=== PATIENT | female | born 1980 | race Two or more races ===

== ENCOUNTER 2016-08-23 13:50 | Inpatient (IN) | payer MEDICAID ==
[2016-08-23] MEDS: NORMAL SALINE 1000 ML 1,000 ML IV PRN ×2 (14:12→18:16)
--- NOTE | 2016-08-23 14:35 | ER Document Report ---
ED Psych Disorder / Suicide - General Chief Complaint: Altered Mental Status Stated Complaint: ALTERED MENTAL STATUS Notes: The patient is a 35-year-old female who presents by EMS after she was found to be violent, agitated, uncooperative and altered. She tried to choke a police officer booking. She is confused and does not know where she is. She continues to ask the same question, "Where am I?". She nods her head when she is asked if she took anything. Was given 2 mg IM Versed by EMS. She is unable to provide any additional history. TRAVEL OUTSIDE OF THE [place] IN LAST 30 DAYS: No - Related Data Allergies/Adverse Reactions: BC pill Allergy (Uncoded 12/14/15 12:49) Home Medications: Current Home Medications No Home Medications 08/23/16 [History] Past Medical History - General Information source: Emergency Med Personnel - Social History Smoking Status: Unknown if Ever Smoked Family History: Reviewed & Not Pertinent Past Surgical History: Reports: Hx Cholecystectomy - Immunizations Hx Diphtheria, Pertussis, Tetanus Vaccination: Yes Review of Systems - Review of Systems -: Yes ROS unobtainable due to patient's medical condition Physical Exam - Vital signs Vitals: Temp Pulse Resp BP Pulse Ox 98.9 F 130 H 24 H 128/68 H 100 08/23/16 14:00 08/23/16 14:00 08/23/16 14:00 08/23/16 14:00 08/23/16 14:00 BP 131/90, HR 151, RR 24, Temp 99.5 oral, Pulse Ox 99% on RA - Notes Notes: PHYSICAL EXAMINATION: GENERAL: Well-appearing, well-nourished and in no acute distress. HEAD: Atraumatic, normocephalic. EYES: Pupils equal round and reactive to light, extraocular movements intact, sclera anicteric, conjunctiva are normal. No nystagmus. ENT: nares patent, oropharynx clear without exudates. Moist mucous membranes. NECK: Normal range of motion, supple without lymphadenopathy LUNGS: Breath sounds clear to auscultation bilaterally and equal. No wheezes rales or rhonchi. HEART: Tachycardia, regular rhythm ABDOMEN: Soft, nontender, normoactive bowel sounds. No guarding, no rebound. No masses appreciated. EXTREMITIES: Normal range of motion, no pitting or edema. No cyanosis. NEUROLOGICAL: Cranial nerves grossly intact. Moving all 4 extremities. PSYCH: Confused. Uncooperative. SKIN: Warm, Dry, normal turgor, no rashes or lesions noted. - Genitourinary External exam: Normal Speculum exam: Vaginal discharge Course - Re-evaluation Re-evalutation: Patient is exhibiting signs of anticholinergic toxidrome with her confusion, persistent tachycardia and dry skin. Tox workup negative, other than positive for benzos, which she received by EMS. Spoke to poison control and they do not recommend physostigmine unless patient was observed to have a direct ingestion of antihistamines. Recommends continuing benzos. 08/23/16 19:40 Patient continues to be altered with tachycardia. She is awake, alert but oriented 0. is in room and says that she does not use illicit drugs and that she has no history of mental illness. She has not had any recent illness or sickness. She took 500 mg Tylenol last night and some children's cough medicine. Considered meningitis or encephalitis, but patient does not have fever or neck stiffness. No recent travel, according to . CBC shows a leukocytosis, but the blood was drawn immediately after she was agitated and wrestling the police and EMS crew. No signs of infection at this time. No retained tampons to suggest TSS. Will continue to provide IV fluids and benzos and observe. 08/23/16 20:[address] Hopkins and he has accepted patient as inpatient. Recommends filling out and IVC so he can continue treatment. I filled out the IVC. Patient does not require hard restraints at this time because she is less agitated. Will switch her to soft restraints for protection against her pulling out her IV. Spoke to and he is in agreement with plan. - Vital Signs Vital signs: Temp Pulse Resp BP Pulse Ox 98.9 F 130 H 20 116/75 100 08/23/16 14:00 08/23/16 14:00 08/23/16 20:15 08/23/16 20:01 08/23/16 20:15 - Laboratory Result Diagrams: 08/23/16 14:00 08/23/16 15:45 Laboratory results interpreted by me: 08/23/16 08/23/16 08/23/16 13:58 14:00 15:45 WBC 19.3 H Hgb 10.8 L Hct 32.9 L Seg Neutrophils % 89.4 H Lymphocytes % 6.1 L Absolute Neutrophils 17.3 H Potassium 3.5 L Glucose 149 H POC Glucose 159 H AST 40 H Creatine Kinase 289 H Total Protein 8.5 H Urine Protein Urine Ketones Urine Blood Urine Urobilinogen Urine Ascorbic Acid Salicylates Acetaminophen < 10 L 08/23/16 08/23/16 16:12 19:00 WBC Hgb Hct Seg Neutrophils % Lymphocytes % Absolute Neutrophils Potassium Glucose POC Glucose AST Creatine Kinase Total Protein Urine Protein 100 H Urine Ketones 80 H Urine Blood SMALL H Urine Urobilinogen 4.0 H Urine Ascorbic Acid 40 H Salicylates < 1.0 L Acetaminophen - Diagnostic Test Radiology reviewed: Image reviewed, Reports reviewed - EKG Interpretation by Me EKG shows normal: Sinus rhythm, [place], Intervals, QRS Complexes, ST-T Waves Rate: Tachycardia Discharge - Discharge Clinical Impression: Tachycardia Overdose Qualifiers: Encounter type: initial encounter Injury intent: undetermined intent Qualified Code(s): T50.904A - Poisoning by unspecified drugs, medicaments and biological substances, undetermined, initial encounter Anticholinergic syndrome Qualifiers: Encounter type: initial encounter Injury intent: undetermined intent Qualified Code(s): T44.3X4A - Poisoning by other parasympatholytics [anticholinergics and antimuscarinics] and spasmolytics, undetermined, initial encounter Condition: Serious Disposition: ADMITTED INPATIENT Admitting Provider: [facility] Unit Admitted: ICU Additional Instructions: OVERDOSE / INGESTION: You have taken more medication than you should have. After your evaluation and care, it is felt that your overdose is not likely to be harmful or of any significant consequences to you and you are being discharged. In the future, you should be careful not to take more medications than what is prescribed for you. Although your overdose does not seem to be of any danger to you at this time, if you develop any unusual or unexpected symptoms after your discharge, you should return to the Emergency Department immediately for re-evaluation. INSTRUCTIONS FOR HOME CARE FOLLOWING DRUG OVERDOSAGE: The doctor feels it's safe for you to go home. You will need to be observed. If charcoal and a laxative was given to you, expect some loose black stools soon. Take no medications unless approved by a physician, including alcohol. If drowsy, lie on your stomach or side for sleeping to avoid aspiration if vomiting occurs. Take only liquids by mouth until there is no more nausea. FOR THE OBSERVER: Observe the patient for the next 24 hours and call or go to the hospital if any of the following are noted: prolonged or repeated vomiting, difficulty in arousing, convulsions (seizures or fits), fever, persistent cough, breathing that is too slow or too rapid, or confused or bizarre behavior. If a counselling visit has been arranged, make sure the patient attends. Call the physician or poison control if you have questions. FOLLOW-UP CARE: If you have been referred to a physician for follow-up care, call the physician s office for an appointment as you were instructed or within the next two days. If you experience worsening or a significant change in your symptoms, notify the physician immediately or return to the Emergency Department at any time for re-evaluation.
[2016-08-23 14:42] LABS: ABSOLUTE BASOPHILS # (AUTO) 0.1 10^3/uL (0.0-0.2); ABSOLUTE LYMPHOCYTES (AUTO) 1.2 10^3/uL (0.5-4.7); ABSOLUTE MONOCYTES (AUTO) 0.8 10^3/uL (0.1-1.4); ABSOLUTE NEUT (AUTO) 17.3 10^3/uL (1.7-8.2); BASOPHILS % (AUTO) 0.3 % (0-2); HEMATOCRIT 32.9 % (36.0-47.0); HEMOGLOBIN 10.8 g/dL (12.0-15.5); HGB HCT DIFFERENCE -0.5; LYMPHOCYTES % (AUTO) 6.1 % (13-45); MEAN CORPUSCULAR HEMOGLOBIN 28.2 pg (27.0-33.4); MEAN CORPUSCULAR HGB CONC 32.9 g/dL (32.0-36.0); MEAN CORPUSCULAR VOLUME 86 fl (80-97); MONOCYTES % (AUTO) 4.2 % (3-13); RED BLOOD COUNT 3.84 10^6/uL (3.72-5.28); RED CELL DISTRIBUTION WIDTH 13.8 % (11.5-14.0); SEGMENTED NEUTROPHILS % (AUTO) 89.4 % (42-78); WHITE BLOOD COUNT 19.3 10^3/uL (4.0-10.5)
[2016-08-23] MEDS ORDERED: MIDAZOLAM 2 MG/2 ML INJ IV ONE (16:00)
[2016-08-23 16:14] LABS: ALANINE AMINOTRANSFERASE 20 U/L (9-52); ALBUMIN 3.7 g/dL (3.5-5.0); ALCOHOL < 10 mg/dL (NONE DETECTED); ALKALINE PHOSPHATASE 110 U/L (38-126); ANION GAP 17 (5-19); ASPARTATE AMINO TRANSFERASE 40 U/L (14-36); BILIRUBIN,TOTAL 0.6 mg/dL (0.2-1.3); BLOOD UREA NITROGEN 11 mg/dL (7-20); CALCIUM 9.3 mg/dL (8.4-10.2); CARBON DIOXIDE 24 mmol/L (22-30); CHLORIDE 104 mmol/L (98-107); CREATINE KINASE 289 U/L (30-135); CREATININE RESULT 0.96 mg/dL (0.52-1.25); GLUCOSE 149 mg/dL (75-110); LIPASE 145.5 U/L (23-300); POTASSIUM 3.5 mmol/L (3.6-5.0); SODIUM 144.5 mmol/L (137-145); TOTAL PROTEIN 8.5 g/dL (6.3-8.2)
[2016-08-23 16:30] LABS: APPEARANCE,URINE CLOUDY; BILIRUBIN,URINE NEGATIVE (NEGATIVE); GLUCOSE, URINE NEGATIVE (NEGATIVE); KETONES,URINE 80 mg/dL (NEGATIVE); LEUKOCYTE ESTERASE,URINE NEGATIVE (NEGATIVE); NITRITE,URINE NEGATIVE (NEGATIVE); PROTEIN,URINE 100 mg/dL (NEGATIVE); URINE SPECIFIC GRAVITY 1.028
[2016-08-23 16:42] LABS: URINE BARBITURATES SCREEN NEGATIVE; URINE METHADONE SCREEN NEGATIVE; URINE OPIATES LOW NEGATIVE; URINE PHENCYCLIDINE SCREEN NEGATIVE
[2016-08-23] MEDS ORDERED: LORAZEPAM INJ 2 MG/1 ML VIAL IV ONE ×2 (17:44→20:25)
[2016-08-23] MEDS ORDERED: NORMAL SALINE 1000 ML 1,000 ML IV PRN (17:49)
[2016-08-23] MEDS ORDERED: LORAZEPAM INJ 2 MG/1 ML VIAL IV PRN (20:41)
[2016-08-23] MEDS ORDERED: HALOPERIDOL LACTATE INJ 5 MG/1 ML VIAL IV ONE (21:08)
[2016-08-23 21:33] LABS: ANION GAP 13 (5-19); BLOOD UREA NITROGEN 9 mg/dL (7-20); CALCIUM 7.6 mg/dL (8.4-10.2); CARBON DIOXIDE 19 mmol/L (22-30); CHLORIDE 115 mmol/L (98-107); CREATININE RESULT 0.73 mg/dL (0.52-1.25); GLUCOSE 115 mg/dL (75-110); POTASSIUM 3.8 mmol/L (3.6-5.0); SODIUM 146.5 mmol/L (137-145)
[2016-08-23] MEDS ORDERED: THIAMINE HCL 100 MG, FOLIC ACID 1 MG in NORMAL SALINE 50 ML IV ONE (22:00)
[2016-08-23] MEDS: HEPARIN SOD (PORCINE) 5,000 UNIT/ML 1 ML SYRINGE SUBCUT SCH (23:07)
--- NOTE | 2016-08-23 23:51 | EKG REPORT ---
SEVERITY:- ABNORMAL ECG - SINUS TACHYCARDIA NONSPECIFIC T ABNORMALITIES, INFERIOR LEADS : Confirmed by: Amrit Clarke 23-Aug-2016 23:51:01
[2016-08-24 01:06] LABS: CHLAM PCR NOT DETECTED (NOT DETECT)
[2016-08-24] MEDS ORDERED: INFLUENZA ADLT QUAD (36MOS+) 2016-17 VAC 0.5 ML SYR IM PRN (01:16)
--- NOTE | 2016-08-24 04:54 | PDOC H&P ---
History of Present Illness Admission Date/PCP: 08/23/16 21:08 Patient complains of: Altered mental status History of Present Illness: VERONICA BOLAÑOS is a 35 year old female who is Swazi-speaking only and history obtained by the medical record and patient's speaking Monegasque at bedside with a past medical history of menorrhagia and paranoid delusions, patient is paranoid restless and intermittently combative placed in restraints after 3 days of acute delirium with hallucinations stating she had been followed by dark shadows. She had also complained of menorrhagia with follow- up to the health department and was referred to the [facility], where she was delusional and directing traffic [place] Police Department was called and was unable to calm the patient becoming combative she was eventually subdued and brought to the emergency room in restraints. Patient's admits to a similar episode of severe paranoia approximately one year ago, but does not have a formal mental health diagnosis given lack of financial resources. In the emergency room she has an unremarkable workup and was initially thought to have an overdose prior to revealing her history. She has received 4 mg of Versed, 4 mg of Ativan, 5 mg of Haldol and remains restless but calm. She does not take any medications, she denies fever but admits pelvic pain. In the emergency room she is found to have leukocytosis but otherwise a nonspecific workup and referred to the hospitalist for admission. Past Medical History Psychiatric Medical History: Reports: Depression, Schizoaffective Disorder Past Surgical History Past Surgical History: Reports: Cholecystectomy Social History Information Source: Relative, [facility] Records Lives with: Family Smoking Status: Never Smoker Frequency of Alcohol Use: None Hx Recreational Drug Use: No Drugs: None Hx Prescription Drug Abuse: No - Advance Directive Resuscitation Status: Full Code Family History Family History: None, Other - No psychiatric illness Parental Family History Reviewed: Yes Children Family History Reviewed: Yes Sibling(s) Family History Reviewed.: Yes Medication/Allergy Home Medications: No Home Medications 08/23/16 Allergies/Adverse Reactions: BC pill Allergy (Uncoded 12/14/15 12:49) Review of Systems ROS unobtainable: Due to mental status Physical Exam Vital Signs: Temp Pulse Resp BP Pulse Ox 99.2 F 114 H 16 107/64 99 08/24/16 00:30 08/24/16 02:00 08/24/16 00:30 08/24/16 00:30 08/24/16 00:30 Intake & Output 08/22/16 08/23/16 08/24/16 11:59 11:59 11:59 Weight 83.2 kg General appearance: PRESENT: disheveled, mild distress. ABSENT: cooperative Head exam: PRESENT: atraumatic, normocephalic Eye exam: PRESENT: conjunctiva pink, EOMI, PERRLA. ABSENT: scleral icterus Ear exam: PRESENT: normal external ear exam Mouth exam: PRESENT: moist, tongue midline Neck exam: PRESENT: full ROM. ABSENT: carotid bruit, JVD, lymphadenopathy, thyromegaly Respiratory exam: PRESENT: clear to auscultation aron. ABSENT: rales, rhonchi, wheezes Cardiovascular exam: PRESENT: RRR. ABSENT: diastolic murmur, rubs, systolic murmur Pulses: PRESENT: normal dorsalis pedis pul Vascular exam: PRESENT: normal capillary refill GI/Abdominal exam: PRESENT: normal bowel sounds, soft. ABSENT: distended, guarding, mass, organolmegaly, rebound, tenderness Gentrourinary exam: PRESENT: other - Pelvic pain to palpation bilaterally Extremities exam: PRESENT: full ROM. ABSENT: calf tenderness, clubbing, pedal edema Psychiatric exam: PRESENT: agitated, anxious, manic, unusual affect. ABSENT: suicidal ideation Focused psych exam: PRESENT: delusional, internal stimuli, paranoid, psychomotor agitation, restlessness Skin exam: PRESENT: dry, intact, warm. ABSENT: cyanosis, rash Results Impressions: Abdomen/Pelvis CT 08/23/16 00:00 IMPRESSION: Markedly distended urinary bladder. Mild bilateral hydroureteronephrosis, questionable for vesicoureteral reflux. Enlarged bilateral ovaries with multiple cystic lesions. Tubular shaped fluid- filled areas at bilateral adnexa, may represent hydrosalpinges. Pelvic ultrasound can help in better characterization. Cholelithiasis. Colonic diverticulosis. Chest X-Ray 08/23/16 14:00 IMPRESSION: NO ACUTE RADIOGRAPHIC FINDING IN THE CHEST. Abdomen X-Ray 08/23/16 21:12 IMPRESSION: POSSIBLE MASS IN THE LOWER ABDOMEN AND PELVIS WITH DISPLACEMENT OF THE BOWEL LOOPS. THIS COULD REPRESENT A DISTENDED URINARY BLADDER, ENLARGED UTERUS, OR OTHER SOFT TISSUE MASS. Assessment & Plan - Diagnosis (1) Encephalopathy acute Is this a current diagnosis for this admission?: YesPlan: Likely secondary to psychotic break with unclear trigger, she received supportive care benzodiazepine and antipsychotic with mental health consult (2) Leukocytosis Is this a current diagnosis for this admission?: YesPlan: Likely secondary to acute psychotic break without fever I will repeat a CBC and obtain urinalysis (3) Pelvic pain Is this a current diagnosis for this admission?: YesPlan: Obtain CT consider PEDIATRIC CARE COORDINATOR consult (4) Hallucinogen psychosis, with delusions Is this a current diagnosis for this admission?: YesPlan: Please see #1 - Time Time Spent: 30 to 50 Minutes
[2016-08-24 05:22] LABS: ABSOLUTE LYMPHOCYTES (AUTO) 1.7 10^3/uL (0.5-4.7); ABSOLUTE MONOCYTES (AUTO) 0.8 10^3/uL (0.1-1.4); ABSOLUTE NEUT (AUTO) 9.4 10^3/uL (1.7-8.2); BASOPHILS % (AUTO) 0.1 % (0-2); HEMATOCRIT 30.4 % (36.0-47.0); HEMOGLOBIN 9.8 g/dL (12.0-15.5); MEAN CORPUSCULAR HEMOGLOBIN 27.7 pg (27.0-33.4); MEAN CORPUSCULAR HGB CONC 32.4 g/dL (32.0-36.0); MEAN CORPUSCULAR VOLUME 86 fl (80-97); MONOCYTES % (AUTO) 7.1 % (3-13); RED BLOOD COUNT 3.55 10^6/uL (3.72-5.28); SEGMENTED NEUTROPHILS % (AUTO) 78.8 % (42-78); WHITE BLOOD COUNT 11.9 10^3/uL (4.0-10.5)
[2016-08-24 05:50] LABS: ANION GAP 11 (5-19); BLOOD UREA NITROGEN 8 mg/dL (7-20); CALCIUM 7.6 mg/dL (8.4-10.2); CARBON DIOXIDE 22 mmol/L (22-30); CHLORIDE 111 mmol/L (98-107); CREATININE RESULT 0.63 mg/dL (0.52-1.25); GLUCOSE 91 mg/dL (75-110); SODIUM 144.2 mmol/L (137-145)
[2016-08-24] MEDS: HEPARIN SOD (PORCINE) 5,000 UNIT/ML 1 ML SYRINGE SUBCUT SCH ×3 (06:52→22:31)
[2016-08-24] MEDS ORDERED: CALCIUM GLUCONATE 1,000 MG in DEXTROSE 5%-WATER 50 ML IV ONE (08:00)
[2016-08-24] MEDS ORDERED: HALOPERIDOL 5 MG TABLET PO SCH (10:00)
[2016-08-24] MEDS: DOCUSATE SODIUM 100 MG CAPSULE PO SCH ×2 (10:15→17:45)
--- NOTE | 2016-08-24 10:28 | PDOC PROGRESS REPORT ---
Subjective Progress Note for:: 08/24/16 Subjective:: Patient could not remember the episode. She did have pelvic pain today but better than yesterday. Patient had voided freely. During the weekend patient has been having trouble urinating with fever. There is no nausea or vomiting, nor diarrhea. Reportedly with heavy menstrual periods. Patient [facility] where she stated that she had a pelvic exam and a Pap smear. Currently involuntarily committed but is off restraints now. Patient is more calm and cooperative. Physical Exam Vital Signs: Temp Pulse Resp BP Pulse Ox 99.2 F 119 H 12 107/79 98 08/24/16 07:24 08/24/16 07:24 08/24/16 07:24 08/24/16 07:24 08/24/16 07:24 Intake & Output 08/23/16 08/24/16 08/25/16 06:59 06:59 06:59 Intake Total 10 Output Total 300 Balance -290 Weight 83.2 kg General appearance: PRESENT: no acute distress, cooperative, obese Head exam: PRESENT: normocephalic Eye exam: PRESENT: EOMI Mouth exam: PRESENT: moist, neck supple Neck exam: ABSENT: JVD Respiratory exam: PRESENT: clear to auscultation aron. ABSENT: rhonchi, wheezes Cardiovascular exam: PRESENT: RRR. ABSENT: gallop GI/Abdominal exam: PRESENT: soft, tenderness - On the hypogastric area. ABSENT : distended Extremities exam: ABSENT: pedal edema Skin exam: PRESENT: dry, warm. ABSENT: cyanosis Results Laboratory Results: 08/24/16 03:58 08/24/16 03:58 08/24/16 08/24/16 03:58 03:58 WBC 11.9 H RBC 3.55 L Hgb 9.8 L Hct 30.4 L MCV 86 MCH 27.7 MCHC 32.4 RDW 14.0 Plt Count 221 Seg Neutrophils % 78.8 H Lymphocytes % 14.0 Monocytes % 7.1 Eosinophils % 0.0 Basophils % 0.1 Absolute Neutrophils 9.4 H Absolute Lymphocytes 1.7 Absolute Monocytes 0.8 Absolute Eosinophils 0.0 Absolute Basophils 0.0 Sodium 144.2 Potassium 4.0 Chloride 111 H Carbon Dioxide 22 Anion Gap 11 BUN 8 Creatinine 0.63 Est GFR ( Amer) > 60 Est GFR (Non-Af Amer) > 60 Glucose 91 Calcium 7.6 L Impressions: Abdomen/Pelvis CT 08/23/16 00:00 IMPRESSION: Markedly distended urinary bladder. Mild bilateral hydroureteronephrosis, questionable for vesicoureteral reflux. Enlarged bilateral ovaries with multiple cystic lesions. Tubular shaped fluid- filled areas at bilateral adnexa, may represent hydrosalpinges. Pelvic ultrasound can help in better characterization. Cholelithiasis. Colonic diverticulosis. Chest X-Ray 08/23/16 14:00 IMPRESSION: NO ACUTE RADIOGRAPHIC FINDING IN THE CHEST. Abdomen X-Ray 08/23/16 21:12 IMPRESSION: POSSIBLE MASS IN THE LOWER ABDOMEN AND PELVIS WITH DISPLACEMENT OF THE BOWEL LOOPS. THIS COULD REPRESENT A DISTENDED URINARY BLADDER, ENLARGED UTERUS, OR OTHER SOFT TISSUE MASS. Transvaginal US 08/24/16 00:00 IMPRESSION: Massively distended urinary bladder. Prior CT 08/23/2016 demonstrates bilateral hydronephrosis and hydroureter likely from urinary outflow obstruction at the level of the urinary bladder outlet Fibroid uterus Bilateral complex adnexal structures likely representing a combination of hydrosalpinx along with either multiple ovarian cysts, pedunculated fibroids, or low-grade ovarian tumors. Assessment & Plan - Diagnosis (1) Encephalopathy acute Is this a current diagnosis for this admission?: Yes (2) Leukocytosis Qualifiers: Leukocytosis type: unspecified Qualified Code(s): D72.829 - Elevated white blood cell count, unspecified Is this a current diagnosis for this admission?: Yes (3) Bladder outlet obstruction Is this a current diagnosis for this admission?: Yes (4) Adnexal mass Is this a current diagnosis for this admission?: Yes (5) Uterine fibroid Qualifiers: Uterine leiomyoma location: unspecified location Qualified Code(s): D25.9 - Leiomyoma of uterus, unspecified Is this a current diagnosis for this admission?: Yes (6) Cholelithiasis Qualifiers: Cholecystitis presence: without cholecystitis Biliary obstruction: with biliary obstruction Is this a current diagnosis for this admission?: Yes (7) Depression Qualifiers: Depression Type: unspecified Qualified Code(s): F32.9 - Major depressive disorder, single episode, unspecified Is this a current diagnosis for this admission?: Yes - Time Time Spent with patient: 25-34 minutes - Plan Summary Plan Summary: Case discussed with psychiatry service. Discontinue Ativan and Haldol. We will begin Zyprexa and Cogentin. In the meantime we'll monitor creatinine, insert gramajo catheter. We will consult urology for further evaluation. Awaiting gynecological evaluation. Continue supportive care. We will check a urine and culture. We will begin antibiotics for possible infection causing bladder outlet obstruction.
[2016-08-24] MEDS ORDERED: CALCIUM GLUCONATE 1000 MG/10 ML INJ IV ONE (10:30)
--- NOTE | 2016-08-24 10:31 | PSYCHOLOGICAL NOTE ---
Psych Note - Psych Note Psych Note: Patient presented to [facility] with altered state and concerns with possible overdose. Clinician notes the patient is Palauan speaking but was able to communicate with clinician because she understands more Algerian then speaks and Clinician can understand more Palauan then she can speak. Patient's was also able to translate when present; clinician notes was translating appropriately and not changing context. Patient states that she has only taken Tylenol and children's cough medication, she denies taking any other medication in any form. The patient states that she has times of a lot of energy and then being down. Clinician notes that while this may indicate a mood issue; it can also be a translational issue. Patient's , Saqib, states that she has only had one other time were there was an issue of paranoia back in December of last year. He stated that she was thinking that director long term care were coming to get her and "things like that." he stated that it started before their vacation back home to [place] and continued while there. When asked how long it lasted he stated "months" but was unable to give a clearer idea of time. Saqib states the patient has been fine until a few days ago when she started acting "weird." When asked to explain was "weird" meant he stated the patient "keep thinking that she had to forgive people." Patient is alert and orientated to person, place, time and circumstance. Mood is euthymic with congruent affect. Patient denies suicidal and homicidal ideation. Patient denies auditory and visual hallucinations; no current delusions are noted while in room with patient. Clinician notes the patient is in soft restraints and has only just started to become less agitated. Thought process is logical, organized and linear. Conversational speech was low. Eye Contact was well maintained. Intellectual abilities appear to be within average range. Attention and concentration are good. Insight, judgment, and impulse control appear to be fair. 296.80 (F 31.9) Unspecified Bipolar and Related Disorder Impression/ plan: Patient is recommended to continue on IVC. Patient denies taking any medications other than Tylenol and children's cough medication. Patient discloses some ups and downs in her mood and energy. At this time is unclear if the patient had a manic episode that resulted in psychosis, if the patient had an allergic reaction to the children's cough medication, or if the patient is taking some other undisclosed substance. Patient is just starting to present as if she is out of psychosis and a re-evaluation will need to be conducted tomorrow, after patient is more stable and some of the possibilities are explored to ensure the patient's safety. Addendum: After further chart review and consultation with attending hospitalist ; requested rescind of IVC consulted with Dr. Charles on agreement with rescind of IVC as the patient is no no longer meets criteria per [place] GS 122 C
--- NOTE | 2016-08-24 11:51 | CONSULTATION REPORT E ---
Consultation Report NAME: VERONICA BOLAÑOS : 1980 AGE: 35Y DATE: 08/24/2016 307 A TO: AFIA NORWOOD M.D. FROM: OBINNA LIZAMA M.D. Requesting Physician HISTORY OF PRESENT ILLNESS: The patient is a 35-year-old female, 2 para 2, with 2 vaginal deliveries. Her children are 11 and 12, respectively. Her last menstrual period was 2 weeks ago, which she described as heavy. SILK SCREEN OPERATOR was consulted with abnormal changes on CT and ultrasound in the pelvis. She presented to the hospital with acute onset of hallucinations and delirium yesterday. She reports being seen at the health department yesterday morning and having a Pap smear and then having an altercation with the [place] police yesterday. She denies memory of the altercation at this time. PAST MEDICAL HISTORY: Significant for an appendectomy in 2008. PAST SURGICAL HISTORY: 1. Cholecystectomy. 2. Appendectomy. SOCIAL HISTORY: She is for 15 years. ALLERGIES: CONTROL PILL. REVIEW OF SYSTEMS: The patient denies any heart or lung problems. PHYSICAL EXAMINATION: GENERAL: She is alert. VITAL SIGNS: Stable. GENERAL: She appears alert and oriented in bed. She does speak Gibraltarian but her says at this point she is 80% normal. HEENT: Unremarkable. ABDOMEN: Soft. GENITOURINARY: Externally is normal. Her cervix looks normal. I did do cultures. She is tender in the pelvis. She did void prior to the exam and a York was then placed, and she had greater than 200 mL of postvoid residual. LABORATORY DATA: Of note, I would like to say that she had a left-sided ovarian cyst on a CT scan back in 2008 when she had her appendectomy. I do not have records of that visit. She also in January of last year presented to the ER and had a left ovarian cyst as well. The remainder of her ultrasound was normal. She denies any followup after that. And then we have the unusual CAT scans and ultrasounds today, with what appears to be a persistent complex left ovarian cyst. There are also some complex changes on the right adnexa. ASSESSMENT: 1. Mental status changes. 2. Pelvic mass. 3. Over-distended bladder. PLAN: I cannot link these 3 problems with any obvious findings. I would recommend a neurological evaluation. Perhaps we could repeat either the CAT scan or the sonogram now that her bladder is drained with a York catheter in place. Also, we should obtain her Pap smear from the health department. DICTATING PHYSICIAN: AFIA NORWOOD M.D. [id number] PHY#: [id number] ID: [id number] JOB#: [id number] ACCT: [id number] cc:AFIA NORWOOD M.D. >
[2016-08-24] MEDS: OLANZAPINE 5 MG TABLET PO SCH ×2 (12:27→22:47)
[2016-08-24] MEDS: CEFTRIAXONE 1 GM/D5W RTU 1 GM/50 ML RTUPB IV SCH (14:28)
[2016-08-24] MEDS: ACETAMINOPHEN 325 MG TABLET PO PRN ×3 (14:29→22:31)
[2016-08-24] MEDS: BENZTROPINE MESYLATE 1 MG TABLET PO SCH (22:31)
[2016-08-25] MEDS: ACETAMINOPHEN 325 MG TABLET PO PRN ×2 (04:19→21:08)
[2016-08-25] MEDS: HEPARIN SOD (PORCINE) 5,000 UNIT/ML 1 ML SYRINGE SUBCUT SCH ×3 (05:05→21:09)
[2016-08-25 05:37] LABS: ANION GAP 10 (5-19); BLOOD UREA NITROGEN 7 mg/dL (7-20); CALCIUM 8.7 mg/dL (8.4-10.2); CARBON DIOXIDE 26 mmol/L (22-30); CHLORIDE 103 mmol/L (98-107); GLUCOSE 105 mg/dL (75-110); POTASSIUM 4.1 mmol/L (3.6-5.0); SODIUM 139.1 mmol/L (137-145)
[2016-08-25 07:55] LABS: ABSOLUTE LYMPHOCYTES (AUTO) 1.7 10^3/uL (0.5-4.7); ABSOLUTE MONOCYTES (AUTO) 0.9 10^3/uL (0.1-1.4); BASOPHILS % (AUTO) 0.1 % (0-2); EOSINOPHILS % (AUTO) 0.1 % (0-6); HEMATOCRIT 32.3 % (36.0-47.0); HEMOGLOBIN 10.6 g/dL (12.0-15.5); HGB HCT DIFFERENCE -0.5; LYMPHOCYTES % (AUTO) 9.7 % (13-45); MEAN CORPUSCULAR HEMOGLOBIN 28.1 pg (27.0-33.4); MEAN CORPUSCULAR HGB CONC 32.8 g/dL (32.0-36.0); MEAN CORPUSCULAR VOLUME 86 fl (80-97); MONOCYTES % (AUTO) 5.2 % (3-13); RED BLOOD COUNT 3.77 10^6/uL (3.72-5.28); RED CELL DISTRIBUTION WIDTH 13.9 % (11.5-14.0); SEGMENTED NEUTROPHILS % (AUTO) 84.9 % (42-78); WHITE BLOOD COUNT 17.7 10^3/uL (4.0-10.5)
[2016-08-25 08:08] LABS: ANION GAP 11 (5-19); BLOOD UREA NITROGEN 6 mg/dL (7-20); CALCIUM 8.7 mg/dL (8.4-10.2); CARBON DIOXIDE 26 mmol/L (22-30); CHLORIDE 104 mmol/L (98-107); CREATININE RESULT 0.74 mg/dL (0.52-1.25); GLUCOSE 106 mg/dL (75-110); POTASSIUM 3.6 mmol/L (3.6-5.0); SODIUM 141.3 mmol/L (137-145)
[2016-08-25 09:54] LABS: APPEARANCE,URINE CLEAR; BILIRUBIN,URINE NEGATIVE (NEGATIVE); GLUCOSE, URINE NEGATIVE (NEGATIVE); KETONES,URINE NEGATIVE (NEGATIVE); LEUKOCYTE ESTERASE,URINE NEGATIVE (NEGATIVE); NITRITE,URINE NEGATIVE (NEGATIVE); PROTEIN,URINE NEGATIVE (NEGATIVE); UROBILINOGEN,URINE NEGATIVE mg/dL (<2.0)
[2016-08-25 10:03] LABS: URINE SPECIFIC GRAVITY > 1.060
[2016-08-25] MEDS: DOCUSATE SODIUM 100 MG CAPSULE PO SCH ×2 (10:21→17:11)
[2016-08-25] MEDS: OLANZAPINE 5 MG TABLET PO SCH ×2 (10:22→23:35)
[2016-08-25] MEDS: LEVOFLOXACIN 750 MG/D5W RTU 150 ML IV SCH (10:23)
[2016-08-25] MEDS: CEFTRIAXONE 1 GM/D5W RTU 1 GM/50 ML RTUPB IV SCH (12:06)
[2016-08-25] MEDS ORDERED: NORMAL SALINE 1000 ML 1,000 ML IV PRN (14:08)
[2016-08-25] MEDS ORDERED: NORMAL SALINE 1000 ML 1,000 ML IV ONE (19:47)
[2016-08-25] MEDS: BENZTROPINE MESYLATE 1 MG TABLET PO SCH (21:08)
--- NOTE | 2016-08-25 23:56 | PDOC PROGRESS REPORT ---
Subjective Progress Note for:: 08/25/16 Subjective:: [employer] Electrician #[id number] used. present for interview. Patient admits to having 10 days of her menstrual cycle prior to presentation. She also reports flulike symptoms. Her reports that both her daughter and himself had been ill with flulike symptoms approximately one week prior to patient's presentation. Patient continues to have fever here in house. MAXIMUM TEMPERATURE of 102.1 yesterday. Patient admits to chills. Patient denies chest pain, shortness of breath, abdominal pain, nausea, vomiting, diarrhea, constipation, headache, new onset weakness. Patient admits to slight cough that is nonproductive. She does admit to some dysuria prior to presentation. Patient denies suicidal ideation or homicidal ideation and audiovisual hallucinations. Physical Exam Vital Signs: Temp Pulse Resp BP Pulse Ox 101.0 F H 93 16 106/62 96 08/25/16 04:20 08/25/16 06:41 08/25/16 04:20 08/25/16 04:20 08/25/16 04:20 Intake & Output 08/24/16 08/25/16 08/26/16 06:59 06:59 06:59 Intake Total 10 806 Output Total 300 1700 Balance -290 -894 Weight 83.2 kg 83.2 kg Exam: General: Awake alert and oriented x4, no acute respiratory distress, pale, acutely ill-appearing HEENT: AT/NC, PERRL, EOMI, oropharynx is dry, slight periconjunctival pallor, no scleral icterus, no conjunctival injection Neck: No JVD, trachea midline Chest: Clear to auscultation bilaterally, no wheezes rhonchi or rales CV: Regular rate and rhythm, normal S1 and S2, no murmur, rub, or gallop Abdomen: Soft, nontender to palpation, nondistended, active bowel sounds; no rebound, rigidity, or guarding Extremities: No cyanosis, clubbing or edema Neuro: Cranial nerves II through XII are grossly intact without focal deficits; awake alert and oriented x4 Psych: Normal mood and affect; increased psychomotor activity Results Laboratory Results: 08/24/16 03:58 08/25/16 04:41 08/25/16 04:41 Sodium 139.1 Potassium 4.1 Chloride 103 Carbon Dioxide 26 Anion Gap 10 BUN 7 Creatinine 0.70 Est GFR ( Amer) > 60 Est GFR (Non-Af Amer) > 60 Glucose 105 Calcium 8.7 Impressions: Abdomen/Pelvis CT 08/23/16 00:00 IMPRESSION: Markedly distended urinary bladder. Mild bilateral hydroureteronephrosis, questionable for vesicoureteral reflux. Enlarged bilateral ovaries with multiple cystic lesions. Tubular shaped fluid- filled areas at bilateral adnexa, may represent hydrosalpinges. Pelvic ultrasound can help in better characterization. Cholelithiasis. Colonic diverticulosis. Chest X-Ray 08/23/16 14:00 IMPRESSION: NO ACUTE RADIOGRAPHIC FINDING IN THE CHEST. Abdomen X-Ray 08/23/16 21:12 IMPRESSION: POSSIBLE MASS IN THE LOWER ABDOMEN AND PELVIS WITH DISPLACEMENT OF THE BOWEL LOOPS. THIS COULD REPRESENT A DISTENDED URINARY BLADDER, ENLARGED UTERUS, OR OTHER SOFT TISSUE MASS. Transvaginal US 08/24/16 00:00 IMPRESSION: Massively distended urinary bladder. Prior CT 08/23/2016 demonstrates bilateral hydronephrosis and hydroureter likely from urinary outflow obstruction at the level of the urinary bladder outlet Fibroid uterus Bilateral complex adnexal structures likely representing a combination of hydrosalpinx along with either multiple ovarian cysts, pedunculated fibroids, or low-grade ovarian tumors. Assessment & Plan - Diagnosis (1) SIRS (systemic inflammatory response syndrome) Is this a current diagnosis for this admission?: YesPlan: At this time, have recent blood, urine, and will obtain chest x-ray. Concern for developing pneumonia or UTI. (2) Dehydration fever Is this a current diagnosis for this admission?: YesPlan: We'll give patient bolus of normal saline and increase her IV fluids. Have encouraged patient to take in oral fluid. (3) Adnexal mass Is this a current diagnosis for this admission?: YesPlan: Appreciate INTAKE NURSE input. At this time, have discussed case with Dr. Fowler of OB/ INTAKE NURSE and he does not recommend any further inpatient evaluation. (4) Bladder outlet obstruction Is this a current diagnosis for this admission?: YesPlan: Continue to use York catheter. Will consult urology when available (5) Encephalopathy acute Is this a current diagnosis for this admission?: YesPlan: Resolved. Possibly multifactorial from underlying sepsis and previously undiagnosed mental illness. (6) Hallucinogen psychosis, with delusions Is this a current diagnosis for this admission?: YesPlan: Currently resolved. Have consulted psychology for input into patient's precipitating event. Family and patient deny ingestion or intoxication. (7) Hydronephrosis Qualifiers: Hydronephrosis type: unspecified Qualified Code(s): N13.30 - Unspecified hydronephrosis Is this a current diagnosis for this admission?: YesPlan: Has not resolved with placement of York catheter. Will consider repeat sonography tomorrow. (8) Severe obesity (BMI 35.0-39.9) Is this a current diagnosis for this admission?: Yes (9) Anemia Qualifiers: Anemia type: unspecified type Qualified Code(s): D64.9 - Anemia, unspecified Is this a current diagnosis for this admission?: YesPlan: Will send iron studies. Likely secondary to menorrhagia. Have checked TSH which is normal and free T4 which is also normal. - Time Time Spent with patient: 35 or more minutes Medications reviewed and adjusted accordingly: Yes
[2016-08-26] MEDS: HEPARIN SOD (PORCINE) 5,000 UNIT/ML 1 ML SYRINGE SUBCUT SCH (05:04)
[2016-08-26 07:02] LABS: ABSOLUTE MONOCYTES (AUTO) 0.8 10^3/uL (0.1-1.4); ABSOLUTE NEUT (AUTO) 14.3 10^3/uL (1.7-8.2); EOSINOPHILS % (AUTO) 0.2 % (0-6); HEMATOCRIT 28.8 % (36.0-47.0); HEMOGLOBIN 9.2 g/dL (12.0-15.5); HGB HCT DIFFERENCE -1.2; LYMPHOCYTES % (AUTO) 11.6 % (13-45); MEAN CORPUSCULAR HEMOGLOBIN 27.7 pg (27.0-33.4); MEAN CORPUSCULAR HGB CONC 32.1 g/dL (32.0-36.0); MEAN CORPUSCULAR VOLUME 86 fl (80-97); MONOCYTES % (AUTO) 4.7 % (3-13); RED BLOOD COUNT 3.33 10^6/uL (3.72-5.28); RED CELL DISTRIBUTION WIDTH 14.4 % (11.5-14.0); SEGMENTED NEUTROPHILS % (AUTO) 83.5 % (42-78); WHITE BLOOD COUNT 17.1 10^3/uL (4.0-10.5)
[2016-08-26 07:24] LABS: ALANINE AMINOTRANSFERASE 23 U/L (9-52); ALBUMIN 2.6 g/dL (3.5-5.0); ALKALINE PHOSPHATASE 80 U/L (38-126); ANION GAP 9 (5-19); ASPARTATE AMINO TRANSFERASE 21 U/L (14-36); BILIRUBIN,TOTAL 0.2 mg/dL (0.2-1.3); BLOOD UREA NITROGEN 5 mg/dL (7-20); CALCIUM 7.8 mg/dL (8.4-10.2); CARBON DIOXIDE 24 mmol/L (22-30); CHLORIDE 110 mmol/L (98-107); CREATININE RESULT 0.59 mg/dL (0.52-1.25); GLUCOSE 111 mg/dL (75-110); MAGNESIUM 1.8 mg/dL (1.6-2.3); POTASSIUM 3.7 mmol/L (3.6-5.0); SODIUM 142.6 mmol/L (137-145); TOTAL PROTEIN 5.6 g/dL (6.3-8.2)
[2016-08-26] MEDS: LEVOFLOXACIN 750 MG/D5W RTU 150 ML IV SCH (09:18)
[2016-08-26] MEDS: DOCUSATE SODIUM 100 MG CAPSULE PO SCH (09:19)
[2016-08-26] MEDS ORDERED: NORMAL SALINE 1000 ML 1,000 ML IV ONE (10:38)
[2016-08-26] MEDS: OLANZAPINE 5 MG TABLET PO SCH (11:08)
[2016-08-26] MEDS: CEFTRIAXONE 1 GM/D5W RTU 1 GM/50 ML RTUPB IV SCH (11:09)
--- NOTE | 2016-08-26 16:43 | PDOC PROGRESS REPORT ---
Subjective Progress Note for:: 08/26/16 Subjective:: Patient reports she's feeling significantly better today. She reports she now has a cough productive of green sputum. Patient is having small amount of loose stool. Patient denies chest pain, shortness of breath, abdominal pain, nausea, vomiting , fevers, chills, constipation, headache, new onset weakness. Discussion at length with patient about her antecedent mood prior to arrival. Patient reports that she does occasionally see in samreen or a little girl. She also reports that she heard God. She reports feelings of hopelessness. She also reports some sadness and anxiety. She reports being depressed but untreated as a child. Her mother has a history of depression. Physical Exam Vital Signs: Temp Pulse Resp BP Pulse Ox 98.7 F 103 H 20 113/72 99 08/26/16 04:45 08/26/16 06:37 08/26/16 04:45 08/26/16 04:45 08/26/16 04:45 Intake & Output 08/25/16 08/26/16 08/27/16 06:59 06:59 06:59 Intake Total 806 1501 Output Total 1700 2525 Balance -894 -1024 Weight 83.2 kg 82.9 kg Exam: General: Awake alert and oriented x4, no acute respiratory distress, HEENT: AT/NC, PERRL, EOMI, oropharynx is slightly dry, slight periconjunctival pallor, no scleral icterus, no conjunctival injection Neck: No JVD, trachea midline Chest: Clear to auscultation bilaterally, no wheezes rhonchi or rales CV: Regular rate and rhythm, normal S1 and S2, no murmur, rub, or gallop Abdomen: Soft, nontender to palpation, nondistended, active bowel sounds; no rebound, rigidity, or guarding Extremities: No cyanosis, clubbing or edema Neuro: Cranial nerves II through XII are grossly intact without focal deficits; awake alert and oriented x4 Psych: Normal mood and affect Results Laboratory Results: 08/26/16 05:58 08/26/16 05:58 08/25/16 08/25/16 08/25/16 07:44 07:44 07:44 WBC 17.7 H RBC 3.77 Hgb 10.6 L Hct 32.3 L MCV 86 MCH 28.1 MCHC 32.8 RDW 13.9 Plt Count 272 Seg Neutrophils % 84.9 H Lymphocytes % 9.7 L Monocytes % 5.2 Eosinophils % 0.1 Basophils % 0.1 Absolute Neutrophils 15.0 H Absolute Lymphocytes 1.7 Absolute Monocytes 0.9 Absolute Eosinophils 0.0 Absolute Basophils 0.0 Sodium 141.3 Potassium 3.6 Chloride 104 Carbon Dioxide 26 Anion Gap 11 BUN 6 L Creatinine 0.74 Est GFR ( Amer) > 60 Est GFR (Non-Af Amer) > 60 Glucose 106 Calcium 8.7 Magnesium Total Bilirubin AST ALT Alkaline Phosphatase Total Protein Albumin Free T4 1.22 Urine Color Urine Appearance Urine pH Ur Specific [place] Urine Protein Urine Glucose (UA) Urine Ketones Urine Blood Urine Nitrite Ur Leukocyte Esterase Urine WBC (Auto) Urine RBC (Auto) 08/25/16 08/26/16 08/26/16 09:20 05:58 05:58 WBC 17.1 H RBC 3.33 L Hgb 9.2 L Hct 28.8 L MCV 86 MCH 27.7 MCHC 32.1 RDW 14.4 H Plt Count 249 Seg Neutrophils % 83.5 H Lymphocytes % 11.6 L Monocytes % 4.7 Eosinophils % 0.2 Basophils % 0.0 Absolute Neutrophils 14.3 H Absolute Lymphocytes 2.0 Absolute Monocytes 0.8 Absolute Eosinophils 0.0 Absolute Basophils 0.0 Sodium 142.6 Potassium 3.7 Chloride 110 H Carbon Dioxide 24 Anion Gap 9 BUN 5 L Creatinine 0.59 Est GFR ( Amer) > 60 Est GFR (Non-Af Amer) > 60 Glucose 111 H Calcium 7.8 L Magnesium 1.8 Total Bilirubin 0.2 AST 21 ALT 23 Alkaline Phosphatase 80 Total Protein 5.6 L Albumin 2.6 L Free T4 Urine Color STRAW Urine Appearance CLEAR Urine pH 7.0 Ur Specific [place] > 1.060 Urine Protein NEGATIVE Urine Glucose (UA) NEGATIVE Urine Ketones NEGATIVE Urine Blood NEGATIVE Urine Nitrite NEGATIVE Ur Leukocyte Esterase NEGATIVE Urine WBC (Auto) 1 Urine RBC (Auto) 5 Impressions: Abdomen X-Ray 08/23/16 21:12 IMPRESSION: POSSIBLE MASS IN THE LOWER ABDOMEN AND PELVIS WITH DISPLACEMENT OF THE BOWEL LOOPS. THIS COULD REPRESENT A DISTENDED URINARY BLADDER, ENLARGED UTERUS, OR OTHER SOFT TISSUE MASS. Transvaginal US 08/24/16 00:00 IMPRESSION: Massively distended urinary bladder. Prior CT 08/23/2016 demonstrates bilateral hydronephrosis and hydroureter likely from urinary outflow obstruction at the level of the urinary bladder outlet Fibroid uterus Bilateral complex adnexal structures likely representing a combination of hydrosalpinx along with either multiple ovarian cysts, pedunculated fibroids, or low-grade ovarian tumors. Chest X-Ray 08/25/16 00:00 IMPRESSION: Blunting of the posterior costophrenic sulci on lateral view from bibasilar atelectasis and trace pleural effusions Abdomen/Pelvis CT 08/25/16 06:00 IMPRESSION: Interval decompression of the bladder status post insertion of a York catheter. The previously described bilateral complex predominately cystic masses in the pelvis are again identified and appear unchanged. Differential possibilities are as previously stated. On the current study couple small nonobstructing left renal calculi are identified. Bibasilar airspace consolidation most consistent with atelectatic changes with associated tiny pleural effusions. Multiple small gallstones are again identified. Other findings as noted above. Assessment & Plan - Diagnosis (1) SIRS (systemic inflammatory response syndrome) Is this a current diagnosis for this admission?: YesPlan: Likely secondary to atypical pneumonia. Will repeat chest x-ray. Obtain sputum culture. (2) Dehydration fever Is this a current diagnosis for this admission?: YesPlan: We'll give patient bolus of normal saline and continue her IV fluids. Have encouraged patient to take in oral fluid. Obtain orthostatic vital signs. (3) Adnexal mass Is this a current diagnosis for this admission?: YesPlan: Appreciate FAMILY DEVELOPMENT SPECIALIST input. At this time, have discussed case with Dr. Fowler of OB/ FAMILY DEVELOPMENT SPECIALIST and he does not recommend any further inpatient evaluation. (4) Bladder outlet obstruction Is this a current diagnosis for this admission?: YesPlan: Continue to use York catheter. Will consult urology when available (5) Encephalopathy acute Is this a current diagnosis for this admission?: YesPlan: Resolved. Possibly multifactorial from underlying sepsis and previously undiagnosed mental illness. (6) Hydronephrosis Qualifiers: Hydronephrosis type: unspecified Qualified Code(s): N13.30 - Unspecified hydronephrosis Is this a current diagnosis for this admission?: Yes (7) Severe obesity (BMI 35.0-39.9) Is this a current diagnosis for this admission?: Yes (8) Anemia Qualifiers: Anemia type: unspecified type Qualified Code(s): D64.9 - Anemia, unspecified Is this a current diagnosis for this admission?: Yes (9) Cholelithiasis Qualifiers: Cholecystitis presence: without cholecystitis Biliary obstruction: without biliary obstruction Is this a current diagnosis for this admission?: Yes (10) Severe major depression, single episode, with psychotic features Is this a current diagnosis for this admission?: YesPlan: Feel that patient likely has major depression with some psychotic features. Patient has a paucity of negative symptoms and does not consistently have audio or visual hallucinations. It appears as though patient's depression has been progressing over the last 1 year and was likely exacerbated by her illness. Continue patient on Zyprexa and have encourage patient to have thorough outpatient evaluation for accurate diagnosis. - Time Time Spent with patient: 35 or more minutes Medications reviewed and adjusted accordingly: Yes Anticipated discharge: Home Within: within 48 hours, within 72 hours
[2016-08-26] MEDS: NORMAL SALINE 1000 ML 1,000 ML IV PRN (17:06)
[2016-08-26] MEDS: ACETAMINOPHEN 325 MG TABLET PO PRN (19:43)
[2016-08-26] MEDS: BENZTROPINE MESYLATE 1 MG TABLET PO SCH (21:08)
[2016-08-27] MEDS: OLANZAPINE 5 MG TABLET PO SCH ×3 (01:37→22:46)
[2016-08-27] MEDS: NORMAL SALINE 1000 ML 1,000 ML IV PRN ×2 (05:16→10:50)
[2016-08-27] MEDS: ACETAMINOPHEN 325 MG TABLET PO PRN ×2 (05:18→19:48)
[2016-08-27] MEDS: LACTOBACILLUS ACIDOPHILUS 250 MG TAB PO SCH ×2 (09:10→17:17)
[2016-08-27 09:17] LABS: ABSOLUTE BASOPHILS # (AUTO) 0.1 10^3/uL (0.0-0.2); ABSOLUTE LYMPHOCYTES (AUTO) 1.6 10^3/uL (0.5-4.7); ABSOLUTE MONOCYTES (AUTO) 0.6 10^3/uL (0.1-1.4); ABSOLUTE NEUT (AUTO) 12.5 10^3/uL (1.7-8.2); BASOPHILS % (AUTO) 0.4 % (0-2); EOSINOPHILS % (AUTO) 0.3 % (0-6); HEMATOCRIT 28.6 % (36.0-47.0); HEMOGLOBIN 9.3 g/dL (12.0-15.5); HGB HCT DIFFERENCE -0.7; LYMPHOCYTES % (AUTO) 10.7 % (13-45); MEAN CORPUSCULAR HEMOGLOBIN 27.7 pg (27.0-33.4); MEAN CORPUSCULAR HGB CONC 32.4 g/dL (32.0-36.0); MEAN CORPUSCULAR VOLUME 85 fl (80-97); MONOCYTES % (AUTO) 4.3 % (3-13); RED BLOOD COUNT 3.36 10^6/uL (3.72-5.28); RED CELL DISTRIBUTION WIDTH 14.2 % (11.5-14.0); SEGMENTED NEUTROPHILS % (AUTO) 84.3 % (42-78); WHITE BLOOD COUNT 14.9 10^3/uL (4.0-10.5)
[2016-08-27] MEDS ORDERED: LEVOFLOXACIN 750 MG TABLET PO SCH (10:00)
[2016-08-27] MEDS: CEFTRIAXONE 1 GM/D5W RTU 1 GM/50 ML RTUPB IV SCH (12:39)
--- NOTE | 2016-08-27 16:24 | PDOC PROGRESS REPORT ---
Subjective Progress Note for:: 08/27/16 Subjective:: Patient reports she's feeling significantly better today. Patient denies chest pain, shortness of breath, abdominal pain, nausea, vomiting , fevers, chills, constipation, headache, new onset weakness. Physical Exam Vital Signs: Temp Pulse Resp BP Pulse Ox 99.2 F 99 20 120/77 97 08/27/16 05:08 08/27/16 06:40 08/27/16 05:08 08/27/16 05:08 08/27/16 05:08 Intake & Output 08/26/16 08/27/16 08/28/16 06:59 06:59 06:59 Intake Total 1501 4253 Output Total 2525 4300 Balance -1024 -47 Weight 82.9 kg 84.3 kg Exam: General: Awake alert and oriented x4, no acute respiratory distress, HEENT: AT/NC, PERRL, EOMI, no scleral icterus, no conjunctival injection Neck: No JVD, trachea midline Chest: Clear to auscultation bilaterally, no wheezes rhonchi or rales CV: Regular rate and rhythm, normal S1 and S2, no murmur, rub, or gallop Abdomen: Soft, nontender to palpation, nondistended, active bowel sounds; no rebound, rigidity, or guarding Extremities: No cyanosis, clubbing or edema Neuro: Cranial nerves II through XII are grossly intact without focal deficits; awake alert and oriented x4 Psych: Normal mood and affect Results Laboratory Results: 08/26/16 05:58 08/26/16 05:58 08/26/16 08/26/16 07:30 09:09 Stool Occult Blood NEGATIVE Stool for White Cells NO WBCs SEEN 08/24/16 16:15 Catheterized Urine Urine Culture - Final NO GROWTH 2 DAYS Impressions: Abdomen X-Ray 08/23/16 21:12 IMPRESSION: POSSIBLE MASS IN THE LOWER ABDOMEN AND PELVIS WITH DISPLACEMENT OF THE BOWEL LOOPS. THIS COULD REPRESENT A DISTENDED URINARY BLADDER, ENLARGED UTERUS, OR OTHER SOFT TISSUE MASS. Transvaginal US 08/24/16 00:00 IMPRESSION: Massively distended urinary bladder. Prior CT 08/23/2016 demonstrates bilateral hydronephrosis and hydroureter likely from urinary outflow obstruction at the level of the urinary bladder outlet Fibroid uterus Bilateral complex adnexal structures likely representing a combination of hydrosalpinx along with either multiple ovarian cysts, pedunculated fibroids, or low-grade ovarian tumors. Chest X-Ray 08/25/16 00:00 IMPRESSION: Blunting of the posterior costophrenic sulci on lateral view from bibasilar atelectasis and trace pleural effusions Abdomen/Pelvis CT 08/25/16 06:00 IMPRESSION: Interval decompression of the bladder status post insertion of a York catheter. The previously described bilateral complex predominately cystic masses in the pelvis are again identified and appear unchanged. Differential possibilities are as previously stated. On the current study couple small nonobstructing left renal calculi are identified. Bibasilar airspace consolidation most consistent with atelectatic changes with associated tiny pleural effusions. Multiple small gallstones are again identified. Other findings as noted above. Assessment & Plan - Diagnosis (1) SIRS (systemic inflammatory response syndrome) Is this a current diagnosis for this admission?: YesPlan: Likely secondary to atypical pneumonia. Improving on levaquin. Obtain sputum culture. (2) Dehydration fever Is this a current diagnosis for this admission?: YesPlan: IMproved (3) Severe major depression, single episode, with psychotic features Is this a current diagnosis for this admission?: YesPlan: Feel that patient likely has major depression with some psychotic features. Patient has a paucity of negative symptoms and does not consistently have audio or visual hallucinations. It appears as though patient's depression has been progressing over the last 1 year and was likely exacerbated by her illness. Continue patient on Zyprexa and have encourage patient to have thorough outpatient evaluation for accurate diagnosis. (4) Adnexal mass Is this a current diagnosis for this admission?: YesPlan: Appreciate HIGH SCHOOL TUTOR input. At this time, have discussed case with Dr. Fowler of OB/ HIGH SCHOOL TUTOR and he does not recommend any further inpatient evaluation. (5) Bladder outlet obstruction Is this a current diagnosis for this admission?: YesPlan: We'll remove York catheter today and repeat ultrasound tomorrow. If hydronephrosis is worse will reinsert York catheter. (6) Encephalopathy acute Is this a current diagnosis for this admission?: YesPlan: Resolved. Possibly multifactorial from underlying sepsis and previously undiagnosed mental illness. (7) Hydronephrosis Qualifiers: Hydronephrosis type: unspecified Qualified Code(s): N13.30 - Unspecified hydronephrosis Is this a current diagnosis for this admission?: Yes (8) Anemia Qualifiers: Anemia type: unspecified type Qualified Code(s): D64.9 - Anemia, unspecified Is this a current diagnosis for this admission?: Yes (9) Cholelithiasis Qualifiers: Cholecystitis presence: without cholecystitis Biliary obstruction: without biliary obstruction Is this a current diagnosis for this admission?: Yes (10) Severe obesity (BMI 35.0-39.9) Is this a current diagnosis for this admission?: Yes - Time Time Spent with patient: 25-34 minutes Medications reviewed and adjusted accordingly: Yes Anticipated discharge: Home Within: within 48 hours
[2016-08-27] MEDS: BENZTROPINE MESYLATE 1 MG TABLET PO SCH (21:06)
[2016-08-28] MEDS: LACTOBACILLUS ACIDOPHILUS 250 MG TAB PO SCH ×2 (09:42→17:01)
[2016-08-28] MEDS: CIPROFLOXACIN HCL 500 MG TABLET PO SCH ×2 (09:43→21:32)
[2016-08-28] MEDS: OLANZAPINE 5 MG TABLET PO SCH ×2 (11:33→22:01)
--- NOTE | 2016-08-28 16:18 | PDOC PROGRESS REPORT ---
Subjective Progress Note for:: 08/28/16 Subjective:: No new complaints. Patient denies chest pain, shortness of breath, abdominal pain, nausea, vomiting , fevers, chills, diarrhea, constipation, headache, new onset weakness. Physical Exam Vital Signs: Temp Pulse Resp BP Pulse Ox 98.2 F 79 12 120/76 100 08/28/16 13:01 08/28/16 14:00 08/28/16 13:01 08/28/16 13:01 08/28/16 13:01 Intake & Output 08/27/16 08/28/16 08/29/16 06:59 06:59 06:59 Intake Total 4253 3540 858 Output Total 4300 3700 400 Balance -47 -160 458 Weight 84.3 kg 82.6 kg Exam: General: Awake alert and oriented x3, no acute respiratory distress HEENT: AT/NC, PERRL, EOMI, oropharynx is moist, pink, no scleral icterus, no conjunctival injection Neck: No JVD, trachea midline Chest: Clear to auscultation bilaterally, no wheezes rhonchi or rales CV: Regular rate and rhythm, normal S1 and S2, no murmur, rub, or gallop Abdomen: Soft, nontender to palpation, nondistended, active bowel sounds; no rebound, rigidity, or guarding Extremities: No cyanosis, clubbing or edema Neuro: Cranial nerves II through XII are grossly intact without focal deficits; awake alert and oriented x3 Psych: Normal mood and affect Results Laboratory Results: 08/27/16 08:23 08/26/16 05:58 08/26/16 07:30 Stool - Stool - Final 08/26/16 07:30 Stool - Stool Stool Culture - Final NO SALMONELLA, SHIGELLA, CAMPYLOBACTER, OR E.COLI 0157 RECOVERED. NEGATIVE FOR SHIGA TOXINS 1&2. Impressions: Abdomen X-Ray 08/23/16 21:12 IMPRESSION: POSSIBLE MASS IN THE LOWER ABDOMEN AND PELVIS WITH DISPLACEMENT OF THE BOWEL LOOPS. THIS COULD REPRESENT A DISTENDED URINARY BLADDER, ENLARGED UTERUS, OR OTHER SOFT TISSUE MASS. Transvaginal US 08/24/16 00:00 IMPRESSION: Massively distended urinary bladder. Prior CT 08/23/2016 demonstrates bilateral hydronephrosis and hydroureter likely from urinary outflow obstruction at the level of the urinary bladder outlet Fibroid uterus Bilateral complex adnexal structures likely representing a combination of hydrosalpinx along with either multiple ovarian cysts, pedunculated fibroids, or low-grade ovarian tumors. Chest X-Ray 08/25/16 00:00 IMPRESSION: Blunting of the posterior costophrenic sulci on lateral view from bibasilar atelectasis and trace pleural effusions Abdomen/Pelvis CT 08/25/16 06:00 IMPRESSION: Interval decompression of the bladder status post insertion of a York catheter. The previously described bilateral complex predominately cystic masses in the pelvis are again identified and appear unchanged. Differential possibilities are as previously stated. On the current study couple small nonobstructing left renal calculi are identified. Bibasilar airspace consolidation most consistent with atelectatic changes with associated tiny pleural effusions. Multiple small gallstones are again identified. Other findings as noted above. Renal Ultrasound 08/28/16 00:00 IMPRESSION: 1. Mild right-sided hydronephrosis. 2. Bilateral adnexal masses as described. These appear to be ovarian in origin. Assessment & Plan - Diagnosis (1) SIRS (systemic inflammatory response syndrome) Is this a current diagnosis for this admission?: YesPlan: Likely secondary to atypical pneumonia. Have transition patient to oral Cipro. (2) Dehydration fever Is this a current diagnosis for this admission?: Yes (3) Severe major depression, single episode, with psychotic features Is this a current diagnosis for this admission?: YesPlan: Feel that patient likely has major depression with some psychotic features. Patient has a paucity of negative symptoms and does not consistently have audio or visual hallucinations. It appears as though patient's depression has been progressing over the last 1 year and was likely exacerbated by her illness. Continue patient on Zyprexa and have encourage patient to have thorough outpatient evaluation for accurate diagnosis. (4) Adnexal mass Is this a current diagnosis for this admission?: YesPlan: Appreciate DOCKMASTER input. At this time, have discussed case with Dr. Fowler of OB/ DOCKMASTER and he does not recommend any further inpatient evaluation. (5) Bladder outlet obstruction Is this a current diagnosis for this admission?: YesPlan: Repeat ultrasound reveals improvement of hydronephrosis with some residual right -sided hydronephrosis. Will repeat ultrasound tomorrow and if it persists will transfer patient to tertiary facility for urologic evaluation. Suspect the patient may have had acute urinary retention possibly due to outpatient medication use. (6) Encephalopathy acute Is this a current diagnosis for this admission?: Yes (7) Hydronephrosis Qualifiers: Hydronephrosis type: unspecified Qualified Code(s): N13.30 - Unspecified hydronephrosis Is this a current diagnosis for this admission?: YesPlan: Repeat ultrasound reveals improvement of hydronephrosis with some residual right -sided hydronephrosis. Will repeat ultrasound tomorrow and if it persists will transfer patient to tertiary facility for urologic evaluation. Suspect the patient may have had acute urinary retention possibly due to outpatient medication use. (8) Anemia Qualifiers: Anemia type: unspecified type Qualified Code(s): D64.9 - Anemia, unspecified Is this a current diagnosis for this admission?: Yes (9) Cholelithiasis Qualifiers: Cholecystitis presence: without cholecystitis Biliary obstruction: without biliary obstruction Is this a current diagnosis for this admission?: Yes (10) Severe obesity (BMI 35.0-39.9) Is this a current diagnosis for this admission?: Yes - Time Time Spent with patient: 15-24 minutes Medications reviewed and adjusted accordingly: Yes Anticipated discharge: Home, [facility]iary Hospital Within: within 24 hours
[2016-08-28] MEDS: BENZTROPINE MESYLATE 1 MG TABLET PO SCH (21:33)
[2016-08-29] MEDS: LACTOBACILLUS ACIDOPHILUS 250 MG TAB PO SCH ×2 (09:12→17:06)
[2016-08-29] MEDS: CIPROFLOXACIN HCL 500 MG TABLET PO SCH (09:12)
[2016-08-29] MEDS: OLANZAPINE 5 MG TABLET PO SCH (10:23)
[2016-08-29 17:43] VITALS: BP 128/78
[2016-08-29] MEDS ORDERED: OLANZAPINE 5 MG TABLET PO ONE (18:30)
--- NOTE | 2016-08-29 20:53 | PDOC DISCHARGE SUMMARY ---
General - Admit/Disc Date/PCP Admission Date/Primary Care Provider: 08/23/16 21:08 Discharge Date: 08/29/16 - Discharge Diagnosis (1) SIRS (systemic inflammatory response syndrome) Is this a current diagnosis for this admission?: Yes (2) Dehydration fever Is this a current diagnosis for this admission?: Yes (3) Severe major depression, single episode, with psychotic features Is this a current diagnosis for this admission?: Yes (4) Adnexal mass Is this a current diagnosis for this admission?: Yes (5) Bladder outlet obstruction Is this a current diagnosis for this admission?: Yes (6) Encephalopathy acute Is this a current diagnosis for this admission?: Yes (7) Hydronephrosis Is this a current diagnosis for this admission?: Yes (8) Anemia Is this a current diagnosis for this admission?: Yes (9) Cholelithiasis Is this a current diagnosis for this admission?: Yes (10) Severe obesity (BMI 35.0-39.9) Is this a current diagnosis for this admission?: Yes - Additional Information Resuscitation Status: Full Code Discharge Diet: Regular Discharge Activity: Activity As Tolerated Home Medications: Benztropine Mesylate [Cogentin 1 mg Tablet] 1 mg PO QHS #30 tablet 08/29/16 Ciprofloxacin HCl [Cipro 500 mg Tablet] 500 mg PO Q12 #10 tablet 08/29/16 Olanzapine [Zyprexa 5 mg Tablet] 5 mg PO Q12@1100,2300 #60 tablet 08/29/16 History of Present Illness History of Present Illness: CC H&P for full history of present illness Hospital Course Hospital Course: VERONICA BOLAÑOS is a 35 year old female who is Yemeni-speaking only and history obtained by the medical record and patient's speaking Uzbek at bedside with a past medical history of menorrhagia and paranoid delusions, patient is paranoid restless and intermittently combative placed in restraints after 3 days of acute delirium with hallucinations stating she had been followed by dark shadows. She had also complained of menorrhagia with follow- up to the health department and was referred to the [facility], where she was delusional and directing traffic [employer] [employer] was called and was unable to calm the patient becoming combative she was eventually subdued and brought to the emergency room in restraints. Patient's admits to a similar episode of severe paranoia approximately one year ago, but does not have a formal mental health diagnosis given lack of financial resources. In the emergency room she has an unremarkable workup and was initially thought to have an overdose prior to revealing her history. She has received 4 mg of Versed, 4 mg of Ativan, 5 mg of Haldol and remains restless but calm. She does not take any medications, she denies fever but admits pelvic pain. In the emergency room she is found to have leukocytosis but otherwise a nonspecific workup and referred to the hospitalist for admission. Workup for patient's leukocytosis was initiated. Patient was found to have a fever of 102. Blood cultures and urine cultures were obtained 2 and were both negative. Influenza screen was negative. Patient was treated with Rocephin and Levaquin for possible community-acquired pneumonia. Once rehydrated, patient had a cough that was productive of green sputum and improvement of her fever on this regimen. Shows transition to oral Cipro and had no recurrence of fever. Patient was admitted and started initially on Zyprexa. Her delusions quickly resolved and patient quickly improved on Zyprexa. She was evaluated by psychology who felt that she no longer met IVC criteria. Patient was also found to have hydronephrosis/hydroureter on CT as well as adnexal lesions. Transvaginal ultrasound was obtained which revealed adnexal masses bilaterally as well as massively distended urinary bladder. Patient was had a York catheter placed with resolution of her acute urinary obstruction. York catheter was removed and subsequent serial ultrasounds of her kidneys were performed which revealed resolved and resolving hydro-nephrosis. Patient has been strongly advised to follow-up for evaluation of her adnexal masses. Patient is also been sternal advised to follow-up with psychiatry for thorough evaluation for her underlying mental illness. Physical Exam Vital Signs: Temp Pulse Resp BP Pulse Ox 98.2 F 98 19 128/78 H 99 08/29/16 17:41 08/29/16 17:41 08/29/16 17:41 08/29/16 17:41 08/29/16 17:41 Intake & Output 08/28/16 08/29/16 08/30/16 06:59 06:59 06:59 Intake Total 3540 1981 595 Output Total 0560 3835 1800 Balance -160 1244 -1205 Weight 82.6 kg 81.2 kg 81.2 kg Exam: General: Awake alert and oriented x3, no acute respiratory distress HEENT: AT/NC, PERRL, EOMI, oropharynx is moist, pink, no scleral icterus, no conjunctival injection Neck: No JVD, trachea midline Chest: Clear to auscultation bilaterally, no wheezes rhonchi or rales CV: Regular rate and rhythm, normal S1 and S2, no murmur, rub, or gallop Abdomen: Soft, nontender to palpation, nondistended, active bowel sounds; no rebound, rigidity, or guarding Extremities: No cyanosis, clubbing or edema Neuro: Cranial nerves II through XII are grossly intact without focal deficits; awake alert and oriented x3 Psych: Normal mood and affect Results Laboratory Results: 08/27/16 08:23 08/26/16 05:58 08/24/16 17:50 Blood Blood Culture - Final NO GROWTH IN 5 DAYS 08/24/16 16:35 Blood Blood Culture - Final NO GROWTH IN 5 DAYS Impressions: Abdomen X-Ray 08/23/16 21:12 IMPRESSION: POSSIBLE MASS IN THE LOWER ABDOMEN AND PELVIS WITH DISPLACEMENT OF THE BOWEL LOOPS. THIS COULD REPRESENT A DISTENDED URINARY BLADDER, ENLARGED UTERUS, OR OTHER SOFT TISSUE MASS. Transvaginal US 08/24/16 00:00 IMPRESSION: Massively distended urinary bladder. Prior CT 08/23/2016 demonstrates bilateral hydronephrosis and hydroureter likely from urinary outflow obstruction at the level of the urinary bladder outlet Fibroid uterus Bilateral complex adnexal structures likely representing a combination of hydrosalpinx along with either multiple ovarian cysts, pedunculated fibroids, or low-grade ovarian tumors. Chest X-Ray 08/25/16 00:00 IMPRESSION: Blunting of the posterior costophrenic sulci on lateral view from bibasilar atelectasis and trace pleural effusions Abdomen/Pelvis CT 08/25/16 06:00 IMPRESSION: Interval decompression of the bladder status post insertion of a York catheter. The previously described bilateral complex predominately cystic masses in the pelvis are again identified and appear unchanged. Differential possibilities are as previously stated. On the current study couple small nonobstructing left renal calculi are identified. Bibasilar airspace consolidation most consistent with atelectatic changes with associated tiny pleural effusions. Multiple small gallstones are again identified. Other findings as noted above. Renal Ultrasound 08/29/16 06:00 IMPRESSION: As above. Status: Imported from [facility] BEING DISCHARGED WITH ANY OF THE FOLLOWING DIAGNOSIS?: No Plan Time Spent: Greater than 30 Minutes
== END 2016-08-29 18:38 | disposition home or self-care (01) | DRG 70 ==
LOC: ER 13:50 → UNDOADMIN 20:58 → EH 20:58 → 3N 08-24 00:15
PROVIDERS: ADMIT Internal Medicine; ATTEND Internal Medicine
PROC: 3E0234Z Introduction of Serum, Toxoid and Vaccine into Muscle, Percutaneous Approach (ICD-10-PCS; principal; 2016-08-29)
DX: G93.40 Encephalopathy, unspecified (principal); J18.9 Pneumonia, unspecified organism; N13.30 Unspecified hydronephrosis; F32.3 Major depressive disorder, single episode, severe with psychotic features; R19.00 Intra-abdominal and pelvic swelling, mass and lump, unspecified site; N32.0 Bladder-neck obstruction; D25.9 Leiomyoma of uterus, unspecified; N92.0 Excessive and frequent menstruation with regular cycle; K80.20 Calculus of gallbladder without cholecystitis without obstruction; D72.829 Elevated white blood cell count, unspecified; E86.0 Dehydration; R50.9 Fever, unspecified; D64.9 Anemia, unspecified; E66.01 Morbid (severe) obesity due to excess calories; Z68.36 Body mass index [BMI] 36.0-36.9, adult; Z23 Encounter for immunization
CPT/HCPCS: 36415; 71010; 71020; 74020; 74177; 76770; 76775; 76830; 80048; 80053; 80307; 81001; 82272; 82550; 82962; 83690; 83735; 84439; 84443; 84484; 84703; 85025; 87040; 87045; 87070; 87077; 87086; 87205; 87491; 87493; 87591; 87804; 89055; 90686; 93005; 93010; 93976; 94799; 96361; 96374; 96376; 99285; J0610; J0696; J1644; J1956; J2060; J2250; J3411; J3490; J7030

== ENCOUNTER 2018-11-08 19:23 | Emergency (ER) | payer SELFPAY ==
--- NOTE | 2018-11-08 20:35 | ER Document Report ---
ED Medical Screen (RME) - General Chief Complaint: Vertigo Stated Complaint: FEELING WEAK AND DIZZY Time Seen by Provider: 11/08/18 20:30 Mode of Arrival: Ambulatory Information source: Patient TRAVEL OUTSIDE OF THE [place] IN LAST 30 DAYS: No - HPI Patient complains to provider of: WEAKNESS, DIZZINESS, ABDO PAIN Notes: 11/08/18 20:34 Patient here with complaints of feeling weak and dizzy. She was having some abdominal pain earlier this morning but has no abdominal pain now. Last normal menstrual cycle was last month some time but she is not exactly sure when. She does not use contraception with sexual activity. She states that she feel like she was going to pass out. No chest pain or shortness of breath. Exam Nontoxic, no distress. Lungs clear and equal throughout. Heart sounds normal. No focal abdominal tenderness on limited triage abdominal exam. No CVA tenderness. Nonfocal neuro exam. Plan CBC, CMP, urine, urine , lipase, EKG An initial examination was made on the patient as part of the triage process, and it was determined a more comprehensive evaluation was necessary. Initial labs were ordered and patient was transferred to another provider in the ED who assumed care and finished evaluation and plan. - Related Data Allergies/Adverse Reactions: BC pill Allergy (Uncoded 12/14/15 12:49) Past Medical History - Social History Family history: Reviewed & Not Pertinent Renal/ Medical History: Denies: Hx Peritoneal Dialysis Psychiatric Medical History: Reports: Hx Depression, Hx Schizoaffective Disorder Past Surgical History: Reports: Hx Cholecystectomy - Immunizations Hx Diphtheria, Pertussis, Tetanus Vaccination: Yes Physical Exam - Vital signs Vitals: Temp Pulse Resp BP Pulse Ox 98.1 F 83 20 144/93 H 98 11/08/18 19:31 11/08/18 19:31 11/08/18 19:31 11/08/18 19:31 11/08/18 19:31 Course - Vital Signs Vital signs: Temp Pulse Resp BP Pulse Ox 98.1 F 83 20 144/93 H 98 11/08/18 19:31 11/08/18 19:31 11/08/18 19:31 11/08/18 19:31 11/08/18 19:31
[2018-11-08 21:19] LABS: ABSOLUTE EOSINOPHILS # (AUTO) 0.2 10^3/uL (0.0-0.6); ABSOLUTE LYMPHOCYTES (AUTO) 2.8 10^3/uL (0.5-4.7); ABSOLUTE MONOCYTES (AUTO) 0.6 10^3/uL (0.1-1.4); ABSOLUTE NEUT (AUTO) 7.7 10^3/uL (1.7-8.2); BASOPHILS % (AUTO) 0.4 % (0-2); EOSINOPHILS % (AUTO) 1.7 % (0-6); HEMATOCRIT 39.9 % (36.0-47.0); HEMOGLOBIN 12.9 g/dL (12.0-15.5); LYMPHOCYTES % (AUTO) 24.5 % (13-45); MEAN CORPUSCULAR HEMOGLOBIN 27.5 pg (27.0-33.4); MEAN CORPUSCULAR HGB CONC 32.4 g/dL (32.0-36.0); MEAN CORPUSCULAR VOLUME 85 fl (80-97); MONOCYTES % (AUTO) 5.4 % (3-13); PLATELET COUNT 337 10^3/uL (150-450); RED CELL DISTRIBUTION WIDTH 14.5 % (11.5-14.0); TOTAL CELLS COUNTED % (AUTO) 100 %; WHITE BLOOD COUNT 11.4 10^3/uL (4.0-10.5)
[2018-11-08 21:30] LABS: APPEARANCE,URINE SLIGHTLY-CLOUDY; BILIRUBIN,URINE NEGATIVE (NEGATIVE); COLOR,URINE YELLOW; GLUCOSE, URINE NEGATIVE (NEGATIVE); KETONES,URINE NEGATIVE (NEGATIVE); LEUKOCYTE ESTERASE,URINE LARGE (NEGATIVE); NITRITE,URINE NEGATIVE (NEGATIVE); PROTEIN,URINE NEGATIVE (NEGATIVE); URINE SPECIFIC GRAVITY 1.013; UROBILINOGEN,URINE NEGATIVE mg/dL (<2.0)
[2018-11-08 21:35] LABS: ALANINE AMINOTRANSFERASE 30 U/L (9-52); ALBUMIN 4.4 g/dL (3.5-5.0); ALKALINE PHOSPHATASE 88 U/L (38-126); ANION GAP 11 (5-19); ASPARTATE AMINO TRANSFERASE 25 U/L (14-36); BILIRUBIN,DIRECT 0.2 mg/dL (0.0-0.4); BILIRUBIN,TOTAL 0.3 mg/dL (0.2-1.3); BLOOD UREA NITROGEN 13 mg/dL (7-20); CALCIUM 10.1 mg/dL (8.4-10.2); CARBON DIOXIDE 28 mmol/L (22-30); CHLORIDE 101 mmol/L (98-107); GLUCOSE 129 mg/dL (75-110); LIPASE 186.3 U/L (23-300); POTASSIUM 4.3 mmol/L (3.6-5.0); SODIUM 139.6 mmol/L (137-145); TOTAL PROTEIN 8.3 g/dL (6.3-8.2)
[2018-11-08] MEDS ORDERED: NITROFURANTOIN MONOHYD/M-CRYST 100 MG CAPSULE PO ONE (21:54)
--- NOTE | 2018-11-08 21:58 | ER Document Report ---
ED General - General Chief Complaint: Vertigo Stated Complaint: FEELING WEAK AND DIZZY Time Seen by Provider: 11/08/18 20:30 Mode of Arrival: Ambulatory TRAVEL OUTSIDE OF THE [place] IN LAST 30 DAYS: No - HPI Notes: Patient is a 38-year-old female that presents to the emergency department for chief complaint of lightheadedness. Patient reports 1 week of intermittent lightheadedness. She states when she stands up quickly she feels like she is going to pass out. She denies any s yncopal event. She denies any palpitations, chest pain or shortness of breath. She also reports nausea without vomiting or diarrhea for the last week. She states he has had a crampy lower abdominal pain that has also been intermittent with urinary frequency. She denies any dysuria or hematuria. Past Medical History: Reviewed in chart Past Surgical History: Adnexal mass resection Social History: Denies tobacco, alcohol, drug use Family History: Reviewed and noncontributory for presenting illness Allergies: Reviewed, see documented allergy list. REVIEW OF SYSTEMS: CONSTITUTIONAL : No fever No chills No diaphoresis No recent illness EENT: No vision changes No congestion No sore throat CARDIOVASCULAR: No chest pain No palpitations RESPIRATORY: No shortness of breath No cough No difficulty breathing GASTROINTESTINAL: abdominal pain nausea No vomiting No diarrhea GENITOURINARY: No dysuria Urinary frequency No hematuria No difficulty urinating MUSCULOSKELETAL: No back pain No leg pain No arm pain SKIN: No rashes No lesions LYMPHATIC: No swollen, enlarged glands. NEUROLOGICAL: lightheadedness No headache No weakness No paresthesias PSYCHIATRIC: No anxiety No depression PHYSICAL EXAMINATION: Vital signs reviewed, nursing noted reviewed. GENERAL: Well-appearing, well-nourished and in no acute distress. HEAD: Atraumatic, normocephalic. EYES: Eyes appear normal, extraocular movements intact, sclera anicteric, conjunctiva are normal. ENT: nares patent, oropharynx clear without exudates. Moist mucous membranes. NECK: Normal range of motion, supple without lymphadenopathy LUNGS: Breath sounds clear to auscultation bilaterally and equal. No wheezes rales or rhonchi. HEART: Regular rate and rhythm without murmurs ABDOMEN: Soft, nontender, normoactive bowel sounds. No rebound, guarding, or rigidity. No masses appreciated. EXTREMITIES: Nontender, good range of motion, no pitting or edema. NEUROLOGICAL: No focal neurological deficits. Moves all extremities spontaneously Motor and sensory grossly intact on exam. PSYCH: Normal mood, normal affect. SKIN: Warm, Dry, normal turgor, no rashes or lesions noted on exposed skin - Related Data Allergies/Adverse Reactions: BC pill Allergy (Uncoded 12/14/15 12:49) Past Medical History - General Information source: Patient - Social History Smoking Status: Unknown if Ever Smoked Family History: None, Other - No psychiatric illness Patient has suicidal ideation: No Patient has homicidal ideation: No Renal/ Medical History: Denies: Hx Peritoneal Dialysis Psychiatric Medical History: Reports: Hx Depression, Hx Schizoaffective Disorder Past Surgical History: Reports: Hx Cholecystectomy - Immunizations Hx Diphtheria, Pertussis, Tetanus Vaccination: Yes Physical Exam - Vital signs Vitals: Temp Pulse Resp BP Pulse Ox 98.1 F 83 20 144/93 H 98 11/08/18 19:31 11/08/18 19:31 11/08/18 19:31 11/08/18 19:31 11/08/18 19:31 Course - Re-evaluation Re-evalutation: 11/08/18 21:55 Vitals reviewed. Nursing notes reviewed. Patient has no focal abdominal tende rness or peritoneal signs to suggest appendicitis, cholecystitis, bowel obstruction or other acute intra-abdominal process. Her blood work shows normal renal function with no electrolyte derangements. She is not anemic. She does have a mild urinary tract infection which is likely the cause of her nausea and lower abdominal cramping. Patient has not had any palpitations or complete syncopal episodes and her EKG shows no ischemic changes. Patient does feel like she is emptying her bladder completely and has not not had any issues with urinary retention since having her adnexal mass resection. Patient was advised to follow closely with her primary care doctor and will be started on antibi otics for her acute UTI. I counseled her on increasing oral hydration and return precautions. She is stable at discharge. Laboratory 11/08/18 11/08/18 11/08/18 20:38 20:38 20:38 WBC 11.4 H RBC 4.70 Hgb 12.9 Hct 39.9 MCV 85 MCH 27.5 MCHC 32.4 RDW 14.5 H Plt Count 337 Seg Neutrophils % 68.0 Lymphocytes % 24.5 Monocytes % 5.4 Eosinophils % 1.7 Basophils % 0.4 Absolute Neutrophils 7.7 Absolute Lymphocytes 2.8 Absolute Monocytes 0.6 Absolute Eosinophils 0.2 Absolute Basophils 0.0 Sodium 139.6 Potassium 4.3 Chloride 101 Carbon Dioxide 28 Anion Gap 11 BUN 13 Creatinine 0.83 Est GFR ( Amer) > 60 Est GFR (Non-Af Amer) > 60 Glucose 129 H Calcium 10.1 Total Bilirubin 0.3 Direct Bilirubin 0.2 Neonat Total Bilirubin Not Reportable Neonat Direct Bilirubin Not Reportable Neonat Indirect Bili Not Reportable AST 25 ALT 30 Alkaline Phosphatase 88 Total Protein 8.3 H Albumin 4.4 Lipase 186.3 Urine Color YELLOW Urine Appearance SLIGHTLY-CLOUDY Urine pH 6.0 Ur Specific [place] 1.013 Urine Protein NEGATIVE Urine Glucose (UA) NEGATIVE Urine Ketones NEGATIVE Urine Blood NEGATIVE Urine Nitrite NEGATIVE Urine Bilirubin NEGATIVE Urine Urobilinogen NEGATIVE Ur Leukocyte Esterase LARGE H Urine WBC (Auto) 5 Urine RBC (Auto) 2 Urine Bacteria (Auto) TRACE Squamous Epi Cells Auto 3 Urine Mucus (Auto) RARE Urine Ascorbic Acid NEGATIVE Urine HCG, Qual NEGATIVE - Vital Signs Vital signs: Temp Pulse Resp BP Pulse Ox 98.1 F 83 20 144/93 H 98 11/08/18 19:31 11/08/18 19:31 11/08/18 19:31 11/08/18 19:31 11/08/18 19:31 - Laboratory Result Diagrams: 11/08/18 20:38 11/08/18 20:38 Laboratory results interpreted by me: 11/08/18 11/08/18 11/08/18 20:38 20:38 20:38 WBC 11.4 H RDW 14.5 H Glucose 129 H Total Protein 8.3 H Ur Leukocyte Esterase LARGE H - EKG Interpretation by Me Additional EKG results interpreted by me: 11/08/18 21:57 Interpreted by myself [id number]: Normal sinus rhythm, rate 72, normal axis, no ectopy, no ST elevation Discharge - Discharge Clinical Impression: Lightheadedness, Acute UTI Condition: Stable Disposition: HOME, SELF-CARE Instructions: Urinary Tract Infection ([facility]), Nitrofurantoin ([facility]) Additional Instructions: Please return to the emergency department if you have any worsening, or concern of your symptoms. Please return to the emergency department if you develop chest pain, difficulty breathing, severe abdominal pain, or ongoing vomiting. Please follow-up with your primary care physician in 2-3 days and any other recommended physicians. If prescribed, take all medications as directed. If you have any questions or concerns do not hesitate to return the emergency department for evaluation. [] Prescriptions: Nitrofurantoin Macrocrystal [Macrodantin] 100 mg PO BID 5 Days capsule Forms: Elevated Blood Pressure Referrals: [facility] [Provider Group] - Follow up in 3-5 days
[2018-11-08 22:09] VITALS: BP 139/86
--- NOTE | 2018-11-08 23:16 | EKG REPORT ---
SEVERITY:- NORMAL ECG - SINUS RHYTHM : Confirmed by: Amrit Clarke 08-Nov-2018 23:15:55
== END 2018-11-08 22:14 | disposition home or self-care (01) ==
LOC: ER 19:23
DX: R42 Dizziness and giddiness (principal); N39.0 Urinary tract infection, site not specified; R11.0 Nausea; R10.30 Lower abdominal pain, unspecified; R35.0 Frequency of micturition; Z88.8 Allergy status to other drugs, medicaments and biological substances
CPT/HCPCS: 93005; 99284; 36415; 83690; 85025; 81025; 80053; 81001; 93010; J8499

== ENCOUNTER 2018-12-24 21:49 | Emergency (ER) | payer SELFPAY ==
--- NOTE | 2018-12-24 23:13 | ER Document Report ---
ED Medical Screen (RME) - General Chief Complaint: Abdominal Pain Stated Complaint: ABDOMINAL PAIN Time Seen by Provider: 12/24/18 23:11 Mode of Arrival: Ambulatory Information source: Patient Notes: 38-year-old female presented to ED for complaint of pain in pelvis and abdomen last week and then again today. She states she has had some nausea but no vomiting. She states that her last menstrual period was November 21 and she has not started her period yet. She states she has had a bilateral tubal ligation. She denies any past medical history. She denies smoking drinking or using any kind of drugs. Patient is alert oriented respirations regular and unlabored speaking in full sentences walks with even steady gait. Patient is nontoxic in appearance. I have greeted and performed a rapid initial assessment of this patient. A comprehensive ED assessment and evaluation of the patient, analysis of test results and completion of medical decision making process will be conducted by an additional ED providers. Dictation of this chart was performed using voice recognition software; therefore, there may be some unintended grammatical errors. TRAVEL OUTSIDE OF THE [place] IN LAST 30 DAYS: No - Related Data Allergies/Adverse Reactions: control pill Allergy (Uncoded 12/24/18 22:10) Past Medical History - Social History Chew tobacco use (# tins/day): No Frequency of alcohol use: None Drug Abuse: None Family history: Reviewed & Not Pertinent Renal/ Medical History: Denies: Hx Peritoneal Dialysis Psychiatric Medical History: Reports: Hx Depression, Hx Schizoaffective Disorder Past Surgical History: Reports: Hx Cholecystectomy - Immunizations Hx Diphtheria, Pertussis, Tetanus Vaccination: Yes
[2018-12-25 02:31] LABS: APPEARANCE,URINE CLOUDY; BILIRUBIN,URINE NEGATIVE (NEGATIVE); COLOR,URINE YELLOW; GLUCOSE, URINE NEGATIVE (NEGATIVE); KETONES,URINE NEGATIVE (NEGATIVE); LEUKOCYTE ESTERASE,URINE LARGE (NEGATIVE); NITRITE,URINE NEGATIVE (NEGATIVE); PROTEIN,URINE 30 mg/dL (NEGATIVE); URINE SPECIFIC GRAVITY 1.029; UROBILINOGEN,URINE NEGATIVE mg/dL (<2.0)
[2018-12-25 02:35] LABS: ABSOLUTE BASOPHILS # (AUTO) 0.1 10^3/uL (0.0-0.2); ABSOLUTE EOSINOPHILS # (AUTO) 0.2 10^3/uL (0.0-0.6); ABSOLUTE LYMPHOCYTES (AUTO) 2.9 10^3/uL (0.5-4.7); ABSOLUTE MONOCYTES (AUTO) 0.7 10^3/uL (0.1-1.4); ABSOLUTE NEUT (AUTO) 8.2 10^3/uL (1.7-8.2); EOSINOPHILS % (AUTO) 1.4 % (0-6); HEMATOCRIT 38.2 % (36.0-47.0); HEMOGLOBIN 12.5 g/dL (12.0-15.5); LYMPHOCYTES % (AUTO) 23.8 % (13-45); MEAN CORPUSCULAR HEMOGLOBIN 27.4 pg (27.0-33.4); MEAN CORPUSCULAR HGB CONC 32.8 g/dL (32.0-36.0); MEAN CORPUSCULAR VOLUME 84 fl (80-97); MONOCYTES % (AUTO) 6.1 % (3-13); PLATELET COUNT 280 10^3/uL (150-450); RED BLOOD COUNT 4.57 10^6/uL (3.72-5.28); RED CELL DISTRIBUTION WIDTH 14.5 % (11.5-14.0); SEGMENTED NEUTROPHILS % (AUTO) 67.7 % (42-78); TOTAL CELLS COUNTED % (AUTO) 100 %; WHITE BLOOD COUNT 12.1 10^3/uL (4.0-10.5)
[2018-12-25 02:48] LABS: ALANINE AMINOTRANSFERASE 26 U/L (9-52); ALKALINE PHOSPHATASE 82 U/L (38-126); ANION GAP 5 (5-19); ASPARTATE AMINO TRANSFERASE 20 U/L (14-36); BILIRUBIN,DIRECT 0.1 mg/dL (0.0-0.4); BILIRUBIN,TOTAL 0.3 mg/dL (0.2-1.3); BLOOD UREA NITROGEN 12 mg/dL (7-20); CALCIUM 9.6 mg/dL (8.4-10.2); CARBON DIOXIDE 32 mmol/L (22-30); CHLORIDE 102 mmol/L (98-107); GLUCOSE 95 mg/dL (75-110); POTASSIUM 4.4 mmol/L (3.6-5.0); SODIUM 138.5 mmol/L (137-145); TOTAL PROTEIN 7.4 g/dL (6.3-8.2)
[2018-12-25 06:28] VITALS: BP 127/81
--- NOTE | 2018-12-25 07:12 | ER Document Report ---
ED General - General Chief Complaint: Abdominal Pain Stated Complaint: ABDOMINAL PAIN Time Seen by Provider: 12/24/18 23:11 Primary Care Provider: [facility] [Provider Group] - Follow up as needed Mode of Arrival: Ambulatory Notes: Patient is a 38-year-old female that presents to the emergency department for chief complaint of 1 week of lower abdominal pain and pelvic pain. Patient denies having any dysuria, hematuria, denies any vaginal bleeding or discharge. She states she had bilateral oophorectomy about 3 years ago, and feels similar to that pain at that time. She describes as a cramping and aching sensation, she has been having urinary frequency, but again denies any pain with urination. Denies any fevers, chills, night sweats, nausea, vomiting, chest pain, kaila rtness of breath or difficulty breathing. She currently rates her pain as a 2 out of 10 describes as an aching sensation in both sides of the pelvis. Past Medical History: Denies chronic medical conditions Past Surgical History: Bilateral oophorectomy Social History: Denies tobacco, alcohol or drug use. Family History: Reviewed and noncontributory for presenting illness Allergies: Reviewed, see documented allergy list. REVIEW OF SYSTEMS: Other than noted above, the 12 point review of systems was reviewed with the patient and were negative, all pertinent findings are included in the HPI. PHYSICAL EXAMINATION: Vital signs reviewed, nursing noted reviewed. GENERAL: Well-appearing, well-nourished and in no acute distress. HEAD: Atraumatic, normocephalic. EYES: Eyes appear normal, extraocular movements intact, sclera anicteric, conjunctiva are normal. ENT: nares patent, oropharynx clear without exudates. Moist mucous membranes. NECK: Normal range of motion, supple without lymphadenopathy LUNGS: Breath sounds clear to auscultation bilaterally and equal. No wheezes rales or rhonchi. HEART: Regular rate and rhythm without murmurs ABDOMEN: Soft, mild lower abdominal discomfort with palpation, normoactive bowel sounds. No rebound, guarding, or rigidity. No masses appreciated. EXTREMITIES: Nontender, good range of motion, no pitting or edema. NEUROLOGICAL: No focal neurological deficits. Moves all extremities spontaneously Motor and sensory grossly intact on exam. PSYCH: Normal mood, normal affect. SKIN: Warm, Dry, normal turgor, no rashes or lesions noted on exposed skin TRAVEL OUTSIDE OF THE [place] IN LAST 30 DAYS: No - Related Data Allergies/Adverse Reactions: control pill Allergy (Uncoded 12/25/18 05:32) Past Medical History - General Information source: Patient - Social History Smoking Status: Never Smoker Chew tobacco use (# tins/day): No Frequency of alcohol use: None Drug Abuse: None Family History: None, Other - No psychiatric illness Patient has suicidal ideation: No Patient has homicidal ideation: No Renal/ Medical History: Denies: Hx Peritoneal Dialysis Psychiatric Medical History: Reports: Hx Depression, Hx Schizoaffective Disorder Past Surgical History: Reports: Hx Cholecystectomy - Immunizations Hx Diphtheria, Pertussis, Tetanus Vaccination: Yes Physical Exam - Vital signs Vitals: Temp Pulse Resp BP Pulse Ox 98.0 F 67 16 141/85 H 100 12/24/18 22:07 12/24/18 22:07 12/24/18 22:07 12/24/18 22:07 12/24/18 22:07 Course - Re-evaluation Re-evalutation: Patient seen and examined vital signs reviewed. Laboratory data and/or imaging were ordered as appropriate for the patient's presenting symptoms and complaint, with consideration of any critical or life threatening conditions that may be associated with their obtained history and exam as noted above. Results were reviewed when available and demonstrated UA consistent with urinary tract infection, she had a mild leukocytosis which supports this as well. The patient was re-evaluated and was stable, pain was tolerable Evaluation was most consistent with urinary tract infection, start the patient on oral antibiotics, or follow-up with [facility]. Results were discussed with the patient at this point, after careful consideration I feel that that patient can be discharged from the emergency department, the patient was educated treatments and reasons to return to the emergency department based on their presumed diagnosis as noted above, they were advised to followup with a primary care physician in 2-3 days. Patient was agreeable to plan of care. *Note is created using voice recognition software and may contain spelling, syntax or grammatical errors. Laboratory 12/25/18 12/25/18 12/25/18 01:04 02:23 02:23 WBC 12.1 H RBC 4.57 Hgb 12.5 Hct 38.2 MCV 84 MCH 27.4 MCHC 32.8 RDW 14.5 H Plt Count 280 Seg Neutrophils % 67.7 Lymphocytes % 23.8 Monocytes % 6.1 Eosinophils % 1.4 Basophils % 1.0 Absolute Neutrophils 8.2 Absolute Lymphocytes 2.9 Absolute Monocytes 0.7 Absolute Eosinophils 0.2 Absolute Basophils 0.1 Sodium 138.5 Potassium 4.4 Chloride 102 Carbon Dioxide 32 H Anion Gap 5 BUN 12 Creatinine 0.73 Est GFR ( Amer) > 60 Est GFR (Non-Af Amer) > 60 Glucose 95 Calcium 9.6 Total Bilirubin 0.3 Direct Bilirubin 0.1 Neonat Total Bilirubin Not Reportable Neonat Direct Bilirubin Not Reportable Neonat Indirect Bili Not Reportable AST 20 ALT 26 Alkaline Phosphatase 82 Total Protein 7.4 Albumin 4.0 Serum HCG, Qual Urine Color YELLOW Urine Appearance CLOUDY Urine pH 5.0 Ur Specific [place] 1.029 Urine Protein 30 H Urine Glucose (UA) NEGATIVE Urine Ketones NEGATIVE Urine Blood NEGATIVE Urine Nitrite NEGATIVE Urine Bilirubin NEGATIVE Urine Urobilinogen NEGATIVE Ur Leukocyte Esterase LARGE H Urine WBC (Auto) 33 Urine RBC (Auto) 5 Squamous Epi Cells Auto 13 Urine Mucus (Auto) MANY Urine Ascorbic Acid NEGATIVE 12/25/18 02:23 WBC RBC Hgb Hct MCV MCH MCHC RDW Plt Count Seg Neutrophils % Lymphocytes % Monocytes % Eosinophils % Basophils % Absolute Neutrophils Absolute Lymphocytes Absolute Monocytes Absolute Eosinophils Absolute Basophils Sodium Potassium Chloride Carbon Dioxide Anion Gap BUN Creatinine Est GFR ( Amer) Est GFR (Non-Af Amer) Glucose Calcium Total Bilirubin Direct Bilirubin Neonat Total Bilirubin Neonat Direct Bilirubin Neonat Indirect Bili AST ALT Alkaline Phosphatase Total Protein Albumin Serum HCG, Qual NEGATIVE Urine Color Urine Appearance Urine pH Ur Specific [place] Urine Protein Urine Glucose (UA) Urine Ketones Urine Blood Urine Nitrite Urine Bilirubin Urine Urobilinogen Ur Leukocyte Esterase Urine WBC (Auto) Urine RBC (Auto) Squamous Epi Cells Auto Urine Mucus (Auto) Urine Ascorbic Acid - Vital Signs Vital signs: Temp Pulse Resp BP Pulse Ox 97.4 F 59 L 18 127/81 H 98 12/25/18 05:53 12/25/18 05:53 12/25/18 05:53 12/25/18 05:53 12/25/18 05:53 - Laboratory Result Diagrams: 12/25/18 02:23 12/25/18 02:23 Laboratory results interpreted by me: 12/25/18 12/25/18 12/25/18 01:04 02:23 02:23 WBC 12.1 H RDW 14.5 H Carbon Dioxide 32 H Urine Protein 30 H Ur Leukocyte Esterase LARGE H Discharge - Discharge Clinical Impression: UTI (urinary tract infection), Pelvic pain Condition: Stable Disposition: HOME, SELF-CARE Instructions: Urinary Tract Infection ([facility]) Additional Instructions: Please follow-up with the [facility] office, please take all medications as pres cribed. Prescriptions: RX: Cephalexin Monohydrate [Keflex 500 mg Capsule] 500 mg PO BID 7 Days #14 capsule Phenazopyridine HCl [Pyridium 200 mg Tablet] 200 mg PO TID #15 tablet Referrals: [facility] [Provider Group] - Follow up as needed
== END 2018-12-25 07:18 | disposition home or self-care (01) ==
LOC: ER 21:49
DX: N39.0 Urinary tract infection, site not specified (principal); R10.2 Pelvic and perineal pain; R35.0 Frequency of micturition; Z90.722 Acquired absence of ovaries, bilateral; Z88.8 Allergy status to other drugs, medicaments and biological substances
CPT/HCPCS: 36415; 80053; 81001; 84703; 85025; 87086; 99284